=== PATIENT | male | born 1940 | race Two or more races ===

== ENCOUNTER 2020-06-29 18:45 | Inpatient (IN) | payer MEDICARE, OTHER ==
[~2020-06-29] VITALS: Ht 172.7 cm; Wt 102.5 kg
--- NOTE | 2020-06-29 18:49 | NUR ---
Dr Beebe spoke to Dr Gilliam, sfdc consultant.
[2020-06-29] MEDS ORDERED: NOREPINEPHRINE BITARTRATE 8 MG in IV NORMAL SALINE 242 ML IV PRN ×4 (19:15)
[2020-06-29] MEDS ORDERED: MEROPENEM 1,000 MG in IV NORMAL SALINE 100 ML IV ONE (19:15)
--- NOTE | 2020-06-29 19:15 | NUR ---
PATIENT BIB RA FROM [facility]. PER REPORT PATIENT WAS RECIEVING DIALYSIS WHEN SBP DOWN TO 50'S. DIALYSIS NURSE REPLACED FLUID THAT WAS REMOVED BUT REMAIN HYPOTENTSIVE. PATIENT UPON ARRIVAL ONLY RESPONDING TO PAINFUL STIMULI. HAS TRACH WITH SHILEY 7.0 XLT WITH VENT SETTING OF AC 20, TIDAL VOLUME OF 550, PEEP OF 5 AND FIO2 OF 40%. PATIENT WITH PERMACATH ON RIGHT CHEST WAS, DOUBLE LUMEN MID LINE ON LEFT UPPER ARM, G TUBE ON ABDOMINAL AREA.
[2020-06-29] MEDS ORDERED: DOXA1TAB2 GT (19:52)
[2020-06-29] MEDS ORDERED: ASPI-1094 GT (19:52)
[2020-06-29] MEDS ORDERED: DUTA0.5C GT (19:52)
[2020-06-29] MEDS ORDERED: DOXA1TAB GT (19:52)
[2020-06-29] MEDS ORDERED: ALBU18HF2 IH (19:52)
[2020-06-29] MEDS ORDERED: ATOR20TA GT (19:52)
[2020-06-29 20:26] LABS: CARBON DIOXIDE 23 mmol/L (21-32); CHLORIDE 103 mmol/L (98-107); CREATININE 2.2 mg/dL (0.6-1.3); GLUCOSE 206 mg/dL (74-106); UREA NITROGEN, BLOOD 54 mg/dL (7-18)
[2020-06-29] MEDS ORDERED: VANCOMYCIN IV 200 ML ONE (20:26)
[2020-06-29] MEDS ORDERED: MEROPENEM 1GM/NS 100ML IVPB **ER PYXIS ONLY IV ONE (20:26)
[2020-06-29 20:27] LABS: BASOPHILS # (AUTO) 0.1 K/uL (0.0-8.0); BASOPHILS % (AUTO) 0.2 % (0.0-2.0); EOSINOPHILS % (AUTO) 0.2 % (0.0-7.0); HEMATOCRIT 26.6 % (36.7-47.1); LYMPHOCYTES # (AUTO) 0.5 K/uL (20.0-40.0); MEAN CORPUSCULAR HEMOGLOBIN 28.8 uug (23.8-33.4); MEAN CORPUSCULAR HGB CONC 30 g/dL (32.5-36.3); MEAN CORPUSCULAR VOLUME 96.3 fL (73.0-96.2); MONOCYTES # (AUTO) 1.4 K/uL (2.0-10.0); MONOCYTES % (AUTO) 5.4 % (0.0-11.0); NEUTROPHILS # (AUTO) 24.6 K/uL (1.8-8.9); NEUTROPHILS % (AUTO) 92.2 % (38.5-71.5); PLATELET COUNT (AUTO) 397 K/uL (152-348); RED BLOOD CELL COUNT(AUTO) 2.76 MIL/uL (4.06-5.63); WHITE BLOOD COUNT (AUTO) 26.6 K/uL (3.6-10.2)
[2020-06-29 20:28] LABS: POTASSIUM 2.7 mmol/L (3.5-5.1)
[2020-06-29 20:32] LABS: ALANINE AMINOTRANSFERASE 23 U/L (16-63); ALKALINE PHOSPHATASE 217 U/L (50-136); ASPARTATE AMINOTRANSFERASE 23 U/L (15-37); BILIRUBIN,DIRECT 0.2 mg/dL (0.0-0.2); BILIRUBIN,TOTAL 0.3 mg/dL (0.2-1.0); CREATINE KINASE, TOTAL 34 U/L (39-308); LACTATE DEHYDROGENASE 182 U/L (85-227); TOTAL PROTEIN, SERUM 6.4 g/dL (6.4-8.2)
[2020-06-29] MEDS ORDERED: VANCOMYCIN IV 1,000 MG in IV DEXTROSE 5% 250 ML IV ONE (21:00)
[2020-06-29] MEDS ORDERED: ONDANSETRON 4 MG/2 ML VIAL IV PRN (21:30)
[2020-06-29] MEDS ORDERED: HYDROCODONE/APAP 5-325MG TABLET PO PRN (21:30)
[2020-06-29] MEDS ORDERED: MAGNESIUM HYDROXIDE 30 ML LIQUID UDC PO PRN (21:30)
[2020-06-29 21:31] LABS: FERRITIN 2011 ng/mL (26-388)
[2020-06-29] MEDS: VANCOMYCIN IV 1,000 MG in IV DEXTROSE 5% 250 ML IV ONE ×2 (21:57→21:58)
[2020-06-29] MEDS: MEROPENEM 1 G in IV NORMAL SALINE 100 ML IV SCH (22:00)
[2020-06-29] MEDS ORDERED: SWABABLE VALVE TRANSFER SET EA MC ONE (22:38)
[2020-06-29] MEDS ORDERED: IV NORMAL SALINE 250 ML IV ONE (22:38)
[2020-06-29] MEDS ORDERED: IOHEXOL 350 100 ML INFUS..BTL ONE (22:38)
--- NOTE | 2020-06-29 23:15 | NUR ---
Patient down to ct scan with critical monitoring.
--- NOTE | 2020-06-29 23:26 | NUR ---
Patient back from cta with no distress noted.
[2020-06-30] MEDS: MEROPENEM 1 G in IV NORMAL SALINE 100 ML IV SCH ×3 (00:40→20:18)
[2020-06-30] MEDS: IV LACTATED RINGERS SOLUTION 1,000 ML IV SCH ×3 (01:46→19:34)
--- NOTE | 2020-06-30 07:10 | NUR ---
Recieved pt from [facility]. Pt in [facility] on vent with settings of AC 20, VT 550, PEEP 5, and fi02 40%. Pt on levophed at 0.1mcg/kg/hr. Pending admission admission to hospital.
[2020-06-30 08:04] LABS: CARBON DIOXIDE 21 mmol/L (21-32); CHLORIDE 101 mmol/L (98-107); CHOLESTEROL 56 mg/dL (<200); CREATININE 2.8 mg/dL (0.6-1.3); GLUCOSE 245 mg/dL (74-106); HDL CHOLESTEROL 19 mg/dL (40-60); MAGNESIUM 2.6 mg/dL (1.8-2.4); PHOSPHOROUS 4.7 mg/dL (2.5-4.9); POTASSIUM 2.9 mmol/L (3.5-5.1); TRIGLYCERIDES 81 MG/DL (30-150); UREA NITROGEN, BLOOD 68 mg/dL (7-18)
[2020-06-30 08:15] LABS: BASOPHILS # (AUTO) 0.1 K/uL (0.0-8.0); BASOPHILS % (AUTO) 0.4 % (0.0-2.0); EOSINOPHILS % (AUTO) 0.1 % (0.0-7.0); HEMATOCRIT 27.5 % (36.7-47.1); HEMOGLOBIN 8.2 g/dL (12.5-16.3); LYMPHOCYTES # (AUTO) 0.4 K/uL (20.0-40.0); LYMPHOCYTES % (AUTO) 1.5 % (20.5-51.5); MEAN CORPUSCULAR HEMOGLOBIN 29.3 uug (23.8-33.4); MEAN CORPUSCULAR HGB CONC 30 g/dL (32.5-36.3); MEAN CORPUSCULAR VOLUME 98.6 fL (73.0-96.2); MONOCYTES # (AUTO) 1.5 K/uL (2.0-10.0); MONOCYTES % (AUTO) 5.3 % (0.0-11.0); NEUTROPHILS # (AUTO) 26.1 K/uL (1.8-8.9); NEUTROPHILS % (AUTO) 92.7 % (38.5-71.5); PLATELET COUNT (AUTO) 424 K/uL (152-348); RED BLOOD CELL COUNT(AUTO) 2.79 MIL/uL (4.06-5.63); WHITE BLOOD COUNT (AUTO) 28.2 K/uL (3.6-10.2)
--- NOTE | 2020-06-30 08:37 | NUR ---
Dr. Souza at [facility], came to evaluate patient. Aware of K of 2.9
[2020-06-30] MEDS ORDERED: ASPIRIN 81 MG TAB.CHEW ONE (08:48)
[2020-06-30] MEDS ORDERED: DOXAZOSIN 1 MG TABLET ONE (08:48)
[2020-06-30] MEDS: ASPIRIN 81 MG TAB.CHEW GT SCH (08:53)
[2020-06-30] MEDS: DOXAZOSIN 1 MG TABLET GT SCH (08:53)
[2020-06-30] MEDS: DUTASTERIDE 0.5 MG CAPSULE PO SCH (08:55)
[2020-06-30] MEDS ORDERED: DOXAZOSIN 1 MG TABLET GT SCH (09:00)
[2020-06-30] MEDS ORDERED: ALBUTEROL SULFATE 8 GM HFA.AER.AD IH PRN (09:00)
[2020-06-30] MEDS ORDERED: VANCOMYCIN IV 1,000 MG in IV DEXTROSE 5% 250 ML IV ONE (09:00)
[2020-06-30] MEDS ORDERED: POTASSIUM PHOSPHATE MM 15 MMOL in IV NORMAL SALINE 250 ML IV ONE (11:00)
[2020-06-30] MEDS: POTASSIUM PHOSPHATE MM 7.5 MMOL in IV NORMAL SALINE 97.5 ML IV SCH ×2 (13:13→15:58)
--- NOTE | 2020-06-30 20:00 | NUR ---
Patient in room 4A with trach vent with setting of AC 20, tidal volume 550, PEEP 5 and FIO@ 40% satting at 100%. Left upper double midline patent with dressing intact, benjie cath on right chest wall. Levophed infusing at 0.1mcg/kg/min. No distress noted.
[2020-06-30] MEDS: ATORVASTATIN 20 MG TABLET GT SCH (20:17)
--- NOTE | 2020-07-01 | NUR ---
Continue crtical care monitoring.
[2020-07-01] MEDS: IV LACTATED RINGERS SOLUTION 1,000 ML IV SCH ×2 (05:07→14:40)
[2020-07-01 07:22] LABS: BASOPHILS # (AUTO) 0.1 K/uL (0.0-8.0); BASOPHILS % (AUTO) 0.3 % (0.0-2.0); EOSINOPHILS # (AUTO) 0.1 K/uL (0.0-0.7); EOSINOPHILS % (AUTO) 0.4 % (0.0-7.0); HEMATOCRIT 26.8 % (36.7-47.1); HEMOGLOBIN 7.9 g/dL (12.5-16.3); LYMPHOCYTES # (AUTO) 0.4 K/uL (20.0-40.0); LYMPHOCYTES % (AUTO) 1.5 % (20.5-51.5); MEAN CORPUSCULAR HGB CONC 30 g/dL (32.5-36.3); MEAN CORPUSCULAR VOLUME 98.1 fL (73.0-96.2); MONOCYTES # (AUTO) 1.4 K/uL (2.0-10.0); MONOCYTES % (AUTO) 5.1 % (0.0-11.0); NEUTROPHILS # (AUTO) 24.3 K/uL (1.8-8.9); NEUTROPHILS % (AUTO) 92.7 % (38.5-71.5); PLATELET COUNT (AUTO) 385 K/uL (152-348); RED BLOOD CELL COUNT(AUTO) 2.73 MIL/uL (4.06-5.63); WHITE BLOOD COUNT (AUTO) 26.3 K/uL (3.6-10.2)
[2020-07-01 07:41] LABS: CARBON DIOXIDE 17 mmol/L (21-32); CHLORIDE 100 mmol/L (98-107); CREATININE 3.2 mg/dL (0.6-1.3); GLUCOSE 211 mg/dL (74-106); MAGNESIUM 2.2 mg/dL (1.8-2.4); PHOSPHOROUS 6.6 mg/dL (2.5-4.9); UREA NITROGEN, BLOOD 76 mg/dL (7-18); VANCOMYCIN,RANDOM 20.7 ug/mL (18.0-26.0)
[2020-07-01] MEDS: DUTASTERIDE 0.5 MG CAPSULE PO SCH ×2 (09:00→10:10)
[2020-07-01] MEDS: ASPIRIN 81 MG TAB.CHEW GT SCH ×2 (09:00→10:09)
[2020-07-01] MEDS: DOXAZOSIN 1 MG TABLET GT SCH (09:00)
[2020-07-01 09:22] LABS: POTASSIUM 2.5 mmol/L (3.5-5.1)
--- NOTE | 2020-07-01 09:50 | NUR ---
Also Dr. Zimmerman was informed that pt's Potassium=2.5. He stated he would put in orders.
--- NOTE | 2020-07-01 10:10 | NUR ---
Pt's BP dropped when levophed ran out and bottle was changed (off for about 8 minutes), then went back up when it was restarted.
[2020-07-01] MEDS ORDERED: DOXAZOSIN 1 MG TABLET ONE (10:11)
[2020-07-01] MEDS ORDERED: ASPIRIN 81 MG TAB.CHEW ONE (10:11)
[2020-07-01] MEDS: MEROPENEM 1 G in IV NORMAL SALINE 100 ML IV SCH ×2 (10:45→20:40)
[2020-07-01] MEDS ORDERED: MEROPENEM 1GM/NS 100ML IVPB **ER PYXIS ONLY IV ONE ×2 (10:49→20:37)
--- NOTE | 2020-07-01 11:00 | NUR ---
Cleaned and turned pt.
[2020-07-01] MEDS ORDERED: POTASSIUM CHLORIDE 50 ML ONE ×2 (11:52→13:31)
[2020-07-01] MEDS: POTASSIUM CHLORIDE 50 ML IV SCH ×2 (12:05→13:20)
--- NOTE | 2020-07-01 12:25 | NUR ---
Pt's BP and SPO2 dropped. INCREASED LEVOPHED to 0.2mcg/kg/min to increase MAP >60. Pt suctioned.
[2020-07-01] MEDS ORDERED: PIPERACILLIN/TAZOBACTAM/D5W 50 ML IV ONE (14:51)
[2020-07-01] MEDS ORDERED: VANCOMYCIN IV 200 ML ONE (14:51)
[2020-07-01] MEDS: Z GUARD REMEDY PASTE 57 GM TUBE TOP PRN (17:51)
[2020-07-01] MEDS: ATORVASTATIN 20 MG TABLET GT SCH (20:40)
--- NOTE | 2020-07-01 20:55 | NUR ---
Dialysis nurse into do dialysis.
--- NOTE | 2020-07-01 23:10 | NUR ---
Dialysis nurse removed 1600ml fluid. Patient with no distress noted.
[2020-07-02] MEDS: IV LACTATED RINGERS SOLUTION 1,000 ML IV SCH ×2 (00:23→09:38)
--- NOTE | 2020-07-02 07:03 | NUR ---
PANDEMIC COVID 19 charting. Multiple ER/"out of ratio pt", observed in ER.
[2020-07-02 07:41] LABS: BASOPHILS # (AUTO) 0.1 K/uL (0.0-8.0); BASOPHILS % (AUTO) 0.3 % (0.0-2.0); EOSINOPHILS # (AUTO) 0.2 K/uL (0.0-0.7); EOSINOPHILS % (AUTO) 0.7 % (0.0-7.0); HEMATOCRIT 27.1 % (36.7-47.1); HEMOGLOBIN 7.8 g/dL (12.5-16.3); LYMPHOCYTES # (AUTO) 0.4 K/uL (20.0-40.0); LYMPHOCYTES % (AUTO) 1.7 % (20.5-51.5); MEAN CORPUSCULAR HEMOGLOBIN 29.1 uug (23.8-33.4); MEAN CORPUSCULAR HGB CONC 29 g/dL (32.5-36.3); MEAN CORPUSCULAR VOLUME 100.6 fL (73.0-96.2); MONOCYTES # (AUTO) 1.1 K/uL (2.0-10.0); MONOCYTES % (AUTO) 4.1 % (0.0-11.0); NEUTROPHILS # (AUTO) 24.4 K/uL (1.8-8.9); NEUTROPHILS % (AUTO) 93.2 % (38.5-71.5); PLATELET COUNT (AUTO) 404 K/uL (152-348); RED BLOOD CELL COUNT(AUTO) 2.69 MIL/uL (4.06-5.63); WHITE BLOOD COUNT (AUTO) 26.1 K/uL (3.6-10.2)
--- NOTE | 2020-07-02 07:50 | NUR ---
Levophed decreased to 0.1mcg/kg/min. BP is 142/76.
[2020-07-02 07:56] LABS: CARBON DIOXIDE 19 mmol/L (21-32); CHLORIDE 99 mmol/L (98-107); CREATININE 2.8 mg/dL (0.6-1.3); GLUCOSE 210 mg/dL (74-106); MAGNESIUM 2.2 mg/dL (1.8-2.4); UREA NITROGEN, BLOOD 61 mg/dL (7-18)
[2020-07-02 07:57] LABS: POTASSIUM 2.7 mmol/L (3.5-5.1)
[2020-07-02 08:08] LABS: ABG BASE EXCESS -9.4 mmol/L; ABG HCO3 17.1 mmol/L; ABG PCO2 39.5 mmHg (35.0-45.0); ABG PH 7.253 (7.350-7.450); ABG PO2 95.1 mmHg (75.0-100.0); ABG SITE RIGHT RADIAL; ABG TOTAL HEMOGLOBIN 8.3 G/dL (13.5-18.0); COHb 1.9 % (0.5-1.5); MetHb 0.3 % (0.0-1.5); VENT MODE VENT - A/C; VT, ABG 550 mL
[2020-07-02] MEDS ORDERED: POTASSIUM CHLORIDE 20 MEQ POWDER PACKET GT ONE (08:15)
[2020-07-02] MEDS: DOXAZOSIN 1 MG TABLET GT SCH (08:26)
[2020-07-02] MEDS ORDERED: POTASSIUM CHLORIDE 20 MEQ POWDER PACKET ONE (08:30)
[2020-07-02] MEDS ORDERED: MEROPENEM 1 G VIAL IV ONE (08:41)
[2020-07-02] MEDS: MEROPENEM 1 G in IV NORMAL SALINE 100 ML IV SCH ×2 (08:44→20:35)
--- NOTE | 2020-07-02 09:47 | NUR ---
Reposition pt,tolorated well. continue w/ closed monitoring.
[2020-07-02] MEDS ORDERED: IV LACTATED RINGERS SOLUTION 1,000 ML IV PRN (12:17)
--- NOTE | 2020-07-02 12:22 | NUR ---
Turn and repostion the pt, BM x2. KARLI noted.
--- NOTE | 2020-07-02 14:33 | NUR ---
Reposition for comfort, NAD noted.
--- NOTE | 2020-07-02 15:00 | NUR ---
Dr Gilliam in to see pt. HD order place by Dr Gilliam.
--- NOTE | 2020-07-02 16:22 | NUR ---
Dr Souza at the bedside, notify of Pt's sking condition/wound.
--- NOTE | 2020-07-02 16:35 | NUR ---
Dr Becker, visiting pt.
--- NOTE | 2020-07-02 20:00 | NUR ---
Patient room 4A responding to painful stimuli. Trach site clean and intact with vent setting of A/C 20, Tidal Volume 550, PEEP 5, FIO2 40%. Permacath on right chest wall. Edema on bilateral upper extremity with skin tears. Changed dressing on coccyx are. Reposition patient. Continue crtitical care monitoring. On Levophed drip running at 0.1mcg/kg/min. Double lumen piccline on left upper arm patent.
[2020-07-02] MEDS: ATORVASTATIN 20 MG TABLET GT SCH (20:15)
[2020-07-02] MEDS ORDERED: MEROPENEM 1GM/NS 100ML IVPB **ER PYXIS ONLY IV ONE (20:29)
--- NOTE | 2020-07-03 06:00 | NUR ---
Changed dressing on coccyx area.
[2020-07-03 06:49] LABS: BASOPHILS # (AUTO) 0.1 K/uL (0.0-8.0); BASOPHILS % (AUTO) 0.4 % (0.0-2.0); EOSINOPHILS # (AUTO) 0.1 K/uL (0.0-0.7); EOSINOPHILS % (AUTO) 0.5 % (0.0-7.0); HEMATOCRIT 26.1 % (36.7-47.1); HEMOGLOBIN 7.6 g/dL (12.5-16.3); LYMPHOCYTES # (AUTO) 0.5 K/uL (20.0-40.0); LYMPHOCYTES % (AUTO) 1.8 % (20.5-51.5); MEAN CORPUSCULAR HEMOGLOBIN 28.8 uug (23.8-33.4); MEAN CORPUSCULAR HGB CONC 29 g/dL (32.5-36.3); MONOCYTES # (AUTO) 1.3 K/uL (2.0-10.0); MONOCYTES % (AUTO) 4.6 % (0.0-11.0); NEUTROPHILS # (AUTO) 26.5 K/uL (1.8-8.9); NEUTROPHILS % (AUTO) 92.7 % (38.5-71.5); PLATELET COUNT (AUTO) 398 K/uL (152-348); RED BLOOD CELL COUNT(AUTO) 2.66 MIL/uL (4.06-5.63); WHITE BLOOD COUNT (AUTO) 28.5 K/uL (3.6-10.2)
[2020-07-03 07:06] LABS: CARBON DIOXIDE 19 mmol/L (21-32); CHLORIDE 101 mmol/L (98-107); CREATININE 3.3 mg/dL (0.6-1.3); GLUCOSE 179 mg/dL (74-106); PHOSPHOROUS 6.3 mg/dL (2.5-4.9); POTASSIUM 3.1 mmol/L (3.5-5.1); UREA NITROGEN, BLOOD 65 mg/dL (7-18); VANCOMYCIN,RANDOM 16.2 ug/mL (18.0-26.0)
--- NOTE | 2020-07-03 07:07 | NUR ---
DR Zimmerman into eval patient. Stopped levophed as requested by Dr Rees.
--- NOTE | 2020-07-03 07:15 | NUR ---
BP = 84/45, LEVOPHERD Restarted.
[2020-07-03] MEDS ORDERED: VANCOMYCIN IV 1,000 MG in IV DEXTROSE 5% 250 ML IV ONE (09:00)
[2020-07-03] MEDS: DOXAZOSIN 1 MG TABLET GT SCH (09:00)
[2020-07-03] MEDS ORDERED: ALBUTEROL SULFATE 2.5 MG/3 ML NEBU NEB PRN (09:15)
[2020-07-03] MEDS ORDERED: ASPIRIN 81 MG TAB.CHEW ONE (09:25)
[2020-07-03] MEDS: ASPIRIN 81 MG TAB.CHEW GT SCH (09:34)
[2020-07-03] MEDS: DUTASTERIDE 0.5 MG CAPSULE PO SCH (09:34)
--- NOTE | 2020-07-03 09:40 | NUR ---
Change LEVOPHED bag/bottle.
[2020-07-03] MEDS ORDERED: MEROPENEM 500MG/NS 50ML PB ***ER PYXIS ONLY IV ONE (09:44)
[2020-07-03] MEDS: MEROPENEM 500 MG in IV NORMAL SALINE 50 ML IV SCH ×2 (09:45→20:35)
--- NOTE | 2020-07-03 10:45 | NUR ---
Wound care nurse packed scral wound and bandaged. Then cleaned and turned pt., replaced linens.
--- NOTE | 2020-07-03 10:54 | NUR ---
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 SCARRING NOTED TO BILATERAL HEELS AND ANKLES. RECOMMEND SURGICAL AND DPM CONSULTS. DR GRIGGS AND DR WATERMAN NOTIFIED OF CONSULT REQUESTS. RECOMMENDATIONS MADE FOR SKIN PROTECTION AND WOUND CARE. DISCUSSED WITH NURSING STAFF AND Heather HILL, SURGICAL P.A. FIRST STEP LOW AIRLOSS MATTRESS TO BE PLACED. MD IN AGREEMENT WITH PLAN OF CARE.
--- NOTE | 2020-07-03 11:05 | NUR ---
Suctioned pt's trach.
--- NOTE | 2020-07-03 11:20 | NUR ---
Suctioned trach tube again.
[2020-07-03] MEDS ORDERED: POTASSIUM CHLORIDE 50 ML ONE ×2 (13:58→15:30)
[2020-07-03] MEDS: POTASSIUM CHLORIDE 50 ML IV SCH ×2 (14:00→15:15)
[2020-07-03] MEDS: CALCIUM ACETATE 667 MG CAPSULE PO SCH ×2 (15:40→20:34)
[2020-07-03] MEDS: CLOTRIMAZOLE 1% CREAM 30 GM TUBE TOP SCH (17:00)
[2020-07-03] MEDS ORDERED: MEROPENEM 1GM/NS 100ML IVPB **ER PYXIS ONLY IV ONE (19:23)
[2020-07-03] MEDS: SODIUM HYPOCHLORITE 0.125% (QUARTER STRENGTH) 473 ML BOTTLE TP SCH (20:34)
[2020-07-03] MEDS: ATORVASTATIN 20 MG TABLET GT SCH (20:35)
--- NOTE | 2020-07-04 06:00 | NUR ---
Changed dressing on sacral area, bilateral lower extremity and bilateral arms as per wound care order. Changed dressing on g tube site.
[2020-07-04] MEDS: SODIUM HYPOCHLORITE 0.125% (QUARTER STRENGTH) 473 ML BOTTLE TP SCH (06:30)
[2020-07-04] MEDS: CLOTRIMAZOLE 1% CREAM 30 GM TUBE TOP SCH (06:30)
--- NOTE | 2020-07-04 08:30 | NUR ---
INCREASED LEVOPHED to 0.2mcg/kg/min (adjusted at 0820) after Pt's BP began to drop to 85/45. BP kendra to 112/47.
[2020-07-04 08:37] LABS: CARBON DIOXIDE 22 mmol/L (21-32); CHLORIDE 104 mmol/L (98-107); CREATININE 3.9 mg/dL (0.6-1.3); GLUCOSE 158 mg/dL (74-106); MAGNESIUM 1.9 mg/dL (1.8-2.4); PHOSPHOROUS 6.1 mg/dL (2.5-4.9); POTASSIUM 3.5 mmol/L (3.5-5.1); UREA NITROGEN, BLOOD 77 mg/dL (7-18)
[2020-07-04 08:41] LABS: HEMATOCRIT 23.6 % (36.7-47.1)
[2020-07-04] MEDS ORDERED: MIDODRINE HCL 2.5 MG TABLET PO SCH (08:45)
[2020-07-04 08:48] LABS: BASOPHILS # (AUTO) 0.3 K/uL (0.0-8.0); BASOPHILS % (AUTO) 1.1 % (0.0-2.0); EOSINOPHILS # (AUTO) 0.1 K/uL (0.0-0.7); EOSINOPHILS % (AUTO) 0.5 % (0.0-7.0); LYMPHOCYTES # (AUTO) 0.8 K/uL (20.0-40.0); MEAN CORPUSCULAR HEMOGLOBIN 29.6 uug (23.8-33.4); MEAN CORPUSCULAR HGB CONC 31 g/dL (32.5-36.3); MEAN CORPUSCULAR VOLUME 96.6 fL (73.0-96.2); MONOCYTES % (AUTO) 4.1 % (0.0-11.0); NEUTROPHILS # (AUTO) 23.3 K/uL (1.8-8.9); NEUTROPHILS % (AUTO) 91.3 % (38.5-71.5); PLATELET COUNT (AUTO) 378 K/uL (152-348); WHITE BLOOD COUNT (AUTO) 25.5 K/uL (3.6-10.2)
[2020-07-04 08:54] LABS: ABG BASE EXCESS -11.5 mmol/L; ABG HCO3 14.9 mmol/L; ABG PCO2 35.8 mmHg (35.0-45.0); ABG PH 7.238 (7.350-7.450); ABG PO2 87.8 mmHg (75.0-100.0); ABG SITE RIGHT RADIAL; ABG TOTAL HEMOGLOBIN 8.4 G/dL (13.5-18.0); MetHb 0.3 % (0.0-1.5); O2Hb 93.6 % (94.0-97.0); VENT MODE VENT - A/C; VT, ABG 550 mL
[2020-07-04] MEDS ORDERED: MEROPENEM 500MG/NS 50ML PB ***ER PYXIS ONLY IV ONE ×2 (08:59→21:15)
[2020-07-04] MEDS ORDERED: ASPIRIN 81 MG TAB.CHEW ONE (08:59)
[2020-07-04] MEDS: DOXAZOSIN 1 MG TABLET GT SCH (09:00)
[2020-07-04] MEDS: CALCIUM ACETATE 667 MG CAPSULE PO SCH ×2 (09:20→13:30)
[2020-07-04] MEDS: ASPIRIN 81 MG TAB.CHEW GT SCH (09:23)
[2020-07-04] MEDS: DUTASTERIDE 0.5 MG CAPSULE PO SCH (09:24)
[2020-07-04] MEDS: MIDODRINE HCL 5 MG TABLET PO SCH ×3 (09:25→22:00)
[2020-07-04] MEDS: MEROPENEM 500 MG in IV NORMAL SALINE 50 ML IV SCH ×2 (09:58→21:43)
--- NOTE | 2020-07-04 10:14 | NUR ---
Received air mattress for hospital bed, transferred pt to that bed and adjusted pressure for ht and wt. Repositioned pt.
[2020-07-04 10:45] LABS: HEMOGLOBIN 7.2 g/dL (12.5-16.3); RED BLOOD CELL COUNT(AUTO) 2.44 MIL/uL (4.06-5.63)
[2020-07-04] MEDS ORDERED: VANCOMYCIN IV 1,000 MG in IV DEXTROSE 5% 250 ML IV SCH (12:00)
[2020-07-04] MEDS ORDERED: VANCOMYCIN IV 500 MG in IV DEXTROSE 5% 100 ML IV PRN (12:30)
--- NOTE | 2020-07-04 13:35 | NUR ---
REDUCED LEVOPHED back to 0.1 mcg/kg/min since SBP in 130's.
--- NOTE | 2020-07-04 13:50 | NUR ---
Dr Souza aware of Critical lab values.
[2020-07-04] MEDS ORDERED: VANCOMYCIN IV 1,000 MG in IV DEXTROSE 5% 250 ML IV ONE (15:00)
--- NOTE | 2020-07-04 15:10 | NUR ---
Told Dr. Dailey that pt had not had a PCR Covid test, stated to order it.
[2020-07-04] MEDS ORDERED: GLUCERNA 1.2 1000ML LIQUID GT PRN (16:30)
--- NOTE | 2020-07-04 16:59 | NUR ---
Suctioned Pt's trach and mouth.
--- NOTE | 2020-07-04 17:55 | NUR ---
Repositioned pt. Elevated arms.
--- NOTE | 2020-07-04 18:06 | NUR ---
PICC nurse suggested to leave pt's line alone unless there are problems.
--- NOTE | 2020-07-04 19:00 | NUR ---
building insulation installer at bedside.
[2020-07-04] MEDS: ATORVASTATIN 20 MG TABLET GT SCH (21:43)
--- NOTE | 2020-07-04 22:32 | NUR ---
Held Midodrine due to patient's BP WNL.
--- NOTE | 2020-07-05 05:35 | NUR ---
Xray at bedside.
--- NOTE | 2020-07-05 07:09 | NUR ---
Report given to Brea cross.
--- NOTE | 2020-07-05 07:10 | NUR ---
Pradeep PORTER 19 charting in ER. "out Of Ratio"/understaffed/holding ICU pts.
[2020-07-05 08:16] LABS: BASOPHILS # (AUTO) 0.1 K/uL (0.0-8.0); BASOPHILS % (AUTO) 0.3 % (0.0-2.0); EOSINOPHILS # (AUTO) 0.1 K/uL (0.0-0.7); EOSINOPHILS % (AUTO) 0.5 % (0.0-7.0); HEMATOCRIT 25.2 % (36.7-47.1); HEMOGLOBIN 7.8 g/dL (12.5-16.3); LYMPHOCYTES # (AUTO) 0.7 K/uL (20.0-40.0); LYMPHOCYTES % (AUTO) 2.9 % (20.5-51.5); MEAN CORPUSCULAR HEMOGLOBIN 29.3 uug (23.8-33.4); MEAN CORPUSCULAR HGB CONC 31 g/dL (32.5-36.3); MEAN CORPUSCULAR VOLUME 94.6 fL (73.0-96.2); MONOCYTES # (AUTO) 1.2 K/uL (2.0-10.0); MONOCYTES % (AUTO) 5.2 % (0.0-11.0); NEUTROPHILS # (AUTO) 20.8 K/uL (1.8-8.9); NEUTROPHILS % (AUTO) 91.1 % (38.5-71.5); PLATELET COUNT (AUTO) 355 K/uL (152-348); RED BLOOD CELL COUNT(AUTO) 2.67 MIL/uL (4.06-5.63); WHITE BLOOD COUNT (AUTO) 22.9 K/uL (3.6-10.2)
[2020-07-05] MEDS: CALCIUM ACETATE 667 MG CAPSULE PO SCH ×4 (08:40→17:43)
[2020-07-05] MEDS: CLOTRIMAZOLE 1% CREAM 30 GM TUBE TOP SCH ×3 (08:47→17:16)
[2020-07-05] MEDS: MIDODRINE HCL 5 MG TABLET PO SCH ×3 (08:48→22:25)
[2020-07-05] MEDS: SODIUM HYPOCHLORITE 0.125% (QUARTER STRENGTH) 473 ML BOTTLE TP SCH ×3 (08:48→17:17)
--- NOTE | 2020-07-05 08:49 | NUR ---
Multiple meds on Pt's emar was not signed/given. No report from previous nurse given to me regarding it.
[2020-07-05] MEDS: DOXAZOSIN 1 MG TABLET GT SCH (08:53)
[2020-07-05] MEDS ORDERED: MEROPENEM 500 MG VIAL IV ONE (09:01)
[2020-07-05] MEDS ORDERED: ASPIRIN 81 MG TAB.CHEW ONE (09:01)
[2020-07-05] MEDS: MEROPENEM 500 MG in IV NORMAL SALINE 50 ML IV SCH ×2 (09:11→21:00)
[2020-07-05] MEDS: DUTASTERIDE 0.5 MG CAPSULE PO SCH (09:12)
[2020-07-05] MEDS: ASPIRIN 81 MG TAB.CHEW GT SCH (09:13)
[2020-07-05 09:15] LABS: CARBON DIOXIDE 23 mmol/L (21-32); CHLORIDE 102 mmol/L (98-107); GLUCOSE 134 mg/dL (74-106); MAGNESIUM 1.8 mg/dL (1.8-2.4); PHOSPHOROUS 4.6 mg/dL (2.5-4.9); POTASSIUM 3.1 mmol/L (3.5-5.1); UREA NITROGEN, BLOOD 53 mg/dL (7-18)
--- NOTE | 2020-07-05 09:17 | NUR ---
Reposition pt, wound care given per wound care orders. Pt has serosanguinouns drainge from all open skin areas.
[2020-07-05] MEDS ORDERED: POTASSIUM CHLORIDE 20 MEQ POWDER PACKET GT ONE (10:15)
[2020-07-05 10:26] LABS: ABG BASE EXCESS -3.2 mmol/L; ABG PCO2 33.9 mmHg (35.0-45.0); ABG SITE RIGHT RADIAL; ABG TOTAL HEMOGLOBIN 7.8 G/dL (13.5-18.0); COHb 2.1 % (0.5-1.5); MetHb 0.3 % (0.0-1.5); O2Hb 93.8 % (94.0-97.0); VENT MODE VENT - A/C; VT, ABG 550 mL
[2020-07-05] MEDS ORDERED: POTASSIUM CHLORIDE 20 MEQ POWDER PACKET ONE (10:36)
--- NOTE | 2020-07-05 11:10 | NUR ---
Dr Gilliam at the bedside.
--- NOTE | 2020-07-05 11:25 | NUR ---
Dr Dailey and Dr العلي visited pt.
--- NOTE | 2020-07-05 12:05 | NUR ---
Reposition and comfort care given.
[2020-07-05 13:53] LABS: BAND % (MANUAL) 21 % (0-10); LYMPHOCYTES % (MANUAL) 6 % (20-40); MONOCYTES % (MANUAL) 4 % (2-10); NEUTROPHILS % (MANUAL) 69 % (42-75)
[2020-07-05] MEDS ORDERED: AMLODIPINE 5 MG TABLET ONE (14:40)
--- NOTE | 2020-07-05 16:16 | NUR ---
Reposition pt, arms elevated. dressing change on BUE and BLE.
[2020-07-05] MEDS: ATORVASTATIN 20 MG TABLET GT SCH (21:00)
[2020-07-05] MEDS ORDERED: MEROPENEM 500MG/NS 50ML PB ***ER PYXIS ONLY IV ONE (22:17)
--- NOTE | 2020-07-06 03:00 | NUR ---
Stopped Levophed drip.
--- NOTE | 2020-07-06 05:15 | NUR ---
Started Glucerna G-tube feed, but noticed that the Gtube was pulled out, attempted to put Gtube back in but stoma has closed. Last known time Gtube was in place 2229.
[2020-07-06] MEDS: MIDODRINE HCL 5 MG TABLET PO SCH ×3 (06:00→21:15)
--- NOTE | 2020-07-06 06:03 | NUR ---
Held Midodrine due to G-tube dislodged. Blood pressure 105/47.
[2020-07-06 06:46] LABS: CARBON DIOXIDE 22 mmol/L (21-32); CHLORIDE 104 mmol/L (98-107); CREATININE 3.6 mg/dL (0.6-1.3); GLUCOSE 113 mg/dL (74-106); MAGNESIUM 1.8 mg/dL (1.8-2.4); PHOSPHOROUS 5.4 mg/dL (2.5-4.9); POTASSIUM 3.2 mmol/L (3.5-5.1); UREA NITROGEN, BLOOD 66 mg/dL (7-18); VANCOMYCIN,RANDOM 19.5 ug/mL (18.0-26.0)
--- NOTE | 2020-07-06 06:59 | NUR ---
Report given to Erica RIVAS dayshift.
[2020-07-06] MEDS: CALCIUM ACETATE 667 MG CAPSULE PO SCH ×3 (08:00→18:00)
--- NOTE | 2020-07-06 08:35 | NUR ---
perineal/comfort measure provided . dressing changed, copius amount of loose light brown stool noticed. will notify the md.
[2020-07-06 08:39] LABS: BASOPHILS % (AUTO) 0.1 % (0.0-2.0); EOSINOPHILS # (AUTO) 0.2 K/uL (0.0-0.7); EOSINOPHILS % (AUTO) 0.9 % (0.0-7.0); HEMATOCRIT 22.9 % (36.7-47.1); LYMPHOCYTES # (AUTO) 0.9 K/uL (20.0-40.0); LYMPHOCYTES % (AUTO) 4.5 % (20.5-51.5); MEAN CORPUSCULAR HEMOGLOBIN 29.5 uug (23.8-33.4); MEAN CORPUSCULAR HGB CONC 30 g/dL (32.5-36.3); MEAN CORPUSCULAR VOLUME 97.1 fL (73.0-96.2); MONOCYTES # (AUTO) 1.6 K/uL (2.0-10.0); MONOCYTES % (AUTO) 7.6 % (0.0-11.0); NEUTROPHILS # (AUTO) 17.8 K/uL (1.8-8.9); NEUTROPHILS % (AUTO) 86.9 % (38.5-71.5); PLATELET COUNT (AUTO) 294 K/uL (152-348); WHITE BLOOD COUNT (AUTO) 20.6 K/uL (3.6-10.2)
[2020-07-06 08:40] LABS: RED BLOOD CELL COUNT(AUTO) 2.36 MIL/uL (4.06-5.63)
--- NOTE | 2020-07-06 08:45 | NUR ---
talked to Dr. العلي over the phone. Dr. العلي requested that er md evaluate the g-tube. if unable to place it back, call for GI consult.
--- NOTE | 2020-07-06 08:56 | NUR ---
CALLED DR. JOYA OFFICE FOR PEG REPLACEMENT. DR. MARGRET ALFORD WATERPROOFER HELPER, LEFT A MESSAGE.
[2020-07-06] MEDS: MEROPENEM 500 MG in IV NORMAL SALINE 50 ML IV SCH ×2 (09:00→20:15)
[2020-07-06] MEDS: CLOTRIMAZOLE 1% CREAM 30 GM TUBE TOP SCH ×2 (09:00→17:05)
[2020-07-06] MEDS: DUTASTERIDE 0.5 MG CAPSULE PO SCH (09:00)
[2020-07-06] MEDS: SODIUM HYPOCHLORITE 0.125% (QUARTER STRENGTH) 473 ML BOTTLE TP SCH ×2 (09:00→17:05)
[2020-07-06] MEDS: ASPIRIN 81 MG TAB.CHEW GT SCH (09:00)
--- NOTE | 2020-07-06 09:00 | NUR ---
UNABLE TO GIVE THE 0900 AM PILLS DUE TO THE FACT THAT PEG IS OUT.
--- NOTE | 2020-07-06 09:15 | NUR ---
DR. JOYA CALLED AND SAID THE PREPARE THE CONSENT FOR EGD WITH PEG PLACEMENT. DR. JOYA SAID THAT IF THE PT SHOULD BE PLACED BACK ON LEVOPHED, SURGERY WILL BE HELD OFF UNTIL PT CAN BE OFF THE LEVOPHED.
--- NOTE | 2020-07-06 10:00 | NUR ---
DR. ORELLANA AT BEDSIDE, AWARE THAT THE PT IS OFF THE LEVOPHED AT THIS TIME. PB AT THIS TIME IS 95/45, DR. ROMERO OK WITH IT.
[2020-07-06] MEDS ORDERED: MEROPENEM 500MG/NS 50ML PB ***ER PYXIS ONLY IV ONE (10:06)
--- NOTE | 2020-07-06 11:00 | NUR ---
DR. PINEDA AT BEDSIDE.
--- NOTE | 2020-07-06 11:54 | NUR ---
LEFT A MESSAGEW FOR DR. JOYA PHONE REGARDING THE PT BEING OFF THE LEVOPHED.
--- NOTE | 2020-07-06 12:10 | NUR ---
RECTAL TUBE PLACED PER DR. LEAL ORDER.
--- NOTE | 2020-07-06 12:24 | NUR ---
called pt daughter, at [phone] and left a message regarding the consent on the egd/peg placement.
--- NOTE | 2020-07-06 12:25 | NUR ---
unable to give g-tube meds.
--- NOTE | 2020-07-06 13:10 | NUR ---
DR. LEAL AT BEDSIDE. DR. LEAL ORDERED STOOL OCCULT BLOOD AND ONE UNIT OF BLOOD TRANSFUSION. STOOL OC SENT TO LAB. CONSENT FOR BLOOD TRANSFUSION PREPARED. Addendum: 07/06/20 at 1444 by GEGE CALLED PT DAUGHTER AGAIN FOR TO NOTIFY HER ABOUT BLOOD TRANSFUSION, NO RESPONSE YET.
--- NOTE | 2020-07-06 14:10 | NUR ---
REGIONAL SALES CONSULTANT AT BEDSIDE.
--- NOTE | 2020-07-06 14:40 | NUR ---
DR. YESSENIA BIRMINGHAM AT BEDSIDE
[2020-07-06 14:42] LABS: *OCCULT BLOOD STOOL POSITIVE (NEGATIVE)
--- NOTE | 2020-07-06 14:48 | NUR ---
UNABLE TO GIVE G-TUBE MEDS
--- NOTE | 2020-07-06 15:35 | NUR ---
ONE UNIT OF BLOOD, [id number], HANDED TO LISETH FIELD OPERATIONS SUPERVISOR, TO BE TRANSFUSED.
--- NOTE | 2020-07-06 16:15 | NUR ---
BLOOD TRANSFUSION FINISHED. NO REACTION.
--- NOTE | 2020-07-06 16:15 | NUR ---
DIALYSIS COMPLETED, 1.1 LITRE REMOVED.
--- NOTE | 2020-07-06 17:00 | NUR ---
MANUEL CARTAGENA, AT BEDSIDE: THE WOUNDS THE COCCYX AREA WILL BE DEBRIED AT BEDSIDE, ONCE THE H/H BECOMES STABLE AT LEAST FOR A DAY.
--- NOTE | 2020-07-06 17:20 | NUR ---
PT SON, ASHER LEMON CALLED, AND REQUESTED THAT HE SHOULD BE CALLED FOR ANY CONCERN INSTEAD OF THE DAUGHTER, BECAUSE SHE IS NOT IN TOWN. PT SON WAS INFORMED ABOUT THE BLOOD TRANSFUSION AND THE PEG PLACEMENT IN THE FUTURE. HE CONSENTED.
[2020-07-06 17:36] LABS: HEPATITIS B SURFACE AB REACTIVE; HEPATITIS B SURFACE AG NEGATIVE
--- NOTE | 2020-07-06 18:07 | NUR ---
UNABLE TO GIVE G-TUBE MED
--- NOTE | 2020-07-06 19:03 | NUR ---
END SHIFT NOTE: PT TURNED MULTIPLE TIMES, COMFORT MEASURES/HYGIENE/ CLEANING PROVIDED MULTIPLE TIMES. NO CHNAGE IN VENT SETS SINCE AM. PT STILL OFF THE LEVOPHED, MAINTAINING BP WITHIN PARAMETERS.
[2020-07-06] MEDS ORDERED: DIATR MEGLU/DIATRIZOATE SODIUM 30 ML BOTTLE PO ONE (19:15)
[2020-07-06] MEDS ORDERED: DIATR MEGLU/DIATRIZOATE SODIUM 30 ML BOTTLE ONE (19:21)
--- NOTE | 2020-07-06 19:24 | NUR ---
PEG OUT. DR MARTINEZ PLACED 12 FRINGE BRANCH CATH TO KEEP STOMA OPEN.
--- NOTE | 2020-07-06 20:00 | NUR ---
PATIENT IN BED, PLACED ON RIGHT SIDE. PERMACATH DRESSING CLEAN AND INTACT ON RIGHT CHEST WALL. PICCLINE ON LEFT UPPER ARM WITH WHITE CAP PATENT AND BLUE CAP UNABLE TO FLUSH. VENT SETTING A/C 26, TIDAL VOLUME 550 AND PEEP 5, WITH 30% FIO2. HAS RECTAL TUBE IN PLACE.
[2020-07-06] MEDS ORDERED: MEROPENEM 1GM/NS 100ML IVPB **ER PYXIS ONLY IV ONE (20:11)
--- NOTE | 2020-07-06 20:21 | NUR ---
DR MARTINEZ SPOKE WITH DR JOYA REGARDING PLACING A 12FRINGE BRANCH ON G TUBE SITE.
[2020-07-06] MEDS: ATORVASTATIN 20 MG TABLET GT SCH (21:15)
--- NOTE | 2020-07-06 22:28 | NUR ---
Dr Wood spoke to DR Harley SINGH gleason operator for [employer]. Ok to transfer to [facility].
--- NOTE | 2020-07-07 00:10 | NUR ---
Transfer to 3rd floor [facility] via gurny with no distress.
[2020-07-07 02:01] VITALS: BP 120/46
[2020-07-07] MEDS: MIDODRINE HCL 5 MG TABLET PO SCH (06:08)
[2020-07-07 06:48] LABS: BASOPHILS % (AUTO) 0.2 % (0.0-2.0); EOSINOPHILS # (AUTO) 0.1 K/uL (0.0-0.7); EOSINOPHILS % (AUTO) 0.7 % (0.0-7.0); HEMATOCRIT 29.2 % (36.7-47.1); HEMOGLOBIN 9.1 g/dL (12.5-16.3); LYMPHOCYTES # (AUTO) 0.6 K/uL (20.0-40.0); MEAN CORPUSCULAR HEMOGLOBIN 29.9 uug (23.8-33.4); MEAN CORPUSCULAR HGB CONC 31 g/dL (32.5-36.3); MEAN CORPUSCULAR VOLUME 95.9 fL (73.0-96.2); MONOCYTES # (AUTO) 1.1 K/uL (2.0-10.0); NEUTROPHILS % (AUTO) 91.1 % (38.5-71.5); PLATELET COUNT (AUTO) 283 K/uL (152-348); RED BLOOD CELL COUNT(AUTO) 3.04 MIL/uL (4.06-5.63); WHITE BLOOD COUNT (AUTO) 20.9 K/uL (3.6-10.2)
[2020-07-07 07:05] VITALS: BP 108/54
[2020-07-07 07:13] LABS: CARBON DIOXIDE 25 mmol/L (21-32); CHLORIDE 102 mmol/L (98-107); CREATININE 2.8 mg/dL (0.6-1.3); GLUCOSE 116 mg/dL (74-106); UREA NITROGEN, BLOOD 45 mg/dL (7-18)
[2020-07-07 07:18] LABS: MAGNESIUM 1.8 mg/dL (1.8-2.4); PHOSPHOROUS 4.6 mg/dL (2.5-4.9)
[2020-07-07 07:30] VITALS: BP 112/52
[2020-07-07] MEDS: MEROPENEM 500 MG in IV NORMAL SALINE 50 ML IV SCH ×2 (10:47→20:31)
--- NOTE | 2020-07-07 11:25 | NUR ---
patient PICC line is not working, spoke to Karly CHILD with order to remove the PICC line and insert new one, supervisory cbp officer made aware.
[2020-07-07 11:31] VITALS: BP 104/44
--- NOTE | 2020-07-07 11:42 | NUR ---
G-TUBE WITH POSITIVE PLACEMENT, PER NURSE EXAMINER GAURAV MENDOZA TO GIVE MEDS THROUGH G-TUBE
[2020-07-07] MEDS: CLOTRIMAZOLE 1% CREAM 30 GM TUBE TOP SCH ×2 (11:44→17:31)
[2020-07-07] MEDS: SODIUM HYPOCHLORITE 0.125% (QUARTER STRENGTH) 473 ML BOTTLE TP SCH ×2 (11:45→17:31)
[2020-07-07] MEDS: CALCIUM ACETATE 667 MG CAPSULE GT SCH ×2 (11:49→17:32)
[2020-07-07] MEDS: FINASTERIDE 5 MG TABLET GT SCH (11:49)
[2020-07-07] MEDS: ASPIRIN 81 MG TAB.CHEW GT SCH (11:49)
[2020-07-07] MEDS ORDERED: POTASSIUM CHLORIDE 20 MEQ POWDER PACKET GT ONE (12:00)
[2020-07-07] MEDS ORDERED: POTASSIUM CHLORIDE 50 ML IV SCH (12:00)
--- NOTE | 2020-07-07 12:27 | NUR ---
OK TO START G-TUBE FEEDING NEPRO 40CC/HR PER MD
[2020-07-07] MEDS: MIDODRINE HCL 5 MG TABLET GT SCH ×2 (13:52→22:00)
--- NOTE | 2020-07-07 14:17 | NUR ---
MIDLINE INSERTED BY TECH TO LEFT UPPER ARM #18
--- NOTE | 2020-07-07 15:52 | NUR ---
patient is vent dependent, multiple full thickness wounds to sacral, lower extremities, skin tear to left arm and left hand, +3 pitting edema to both upper extremities, dressing done as ordered by dr Page, heel protectors placed to both heels to protect heels, repositioned and turned every 2 hours, g-tube site is clean and dry, intact with positive placement, medications administered through g-tube, flushed with free water, noted with bleeding from the right lower leg wound, pressure dressing done and monitored, resolved, Flexi tube in place, noted with soft BM in the tube, continue with care as ordered
[2020-07-07 16:00] VITALS: BP 96/38
[2020-07-07] MEDS: NEPRO 1000 ML GT PRN (16:05)
[2020-07-07] MEDS: PANTOPRAZOLE SODIUM 40 MG VIAL IV SCH ×2 (17:31→20:39)
--- NOTE | 2020-07-07 19:40 | NUR ---
Obtunded, HOB elevated, on mechanical ventilator with prescribed setting tolerated well. Oropharangeal suctioning rendered with small amount of thick to thin white secretion, tolerated well. Track intact and patent. Gt feeding via Enteral pump running at 40 cc/hour as ordered. No s/s of aspiration. Generalized swelling noted. Rectal tube intact with small amount of soft loose brown colored stool. Continue care as planned.
[2020-07-07 20:24] VITALS: BP 120/37
[2020-07-07] MEDS: ATORVASTATIN 20 MG TABLET GT SCH (20:39)
[2020-07-07] MEDS ORDERED: LIDOCAINE 1%-EPI 1:100,000 20 ML VIAL IJ ONE (21:45)
[2020-07-07] MEDS ORDERED: SILVER NITRATE APPLICATOR STICK EACH TP ONE (21:45)
[2020-07-08 00:39] VITALS: BP 100/43
[2020-07-08 04:39] VITALS: BP 121/41
[2020-07-08] MEDS: MIDODRINE HCL 5 MG TABLET GT SCH ×3 (06:00→21:25)
--- NOTE | 2020-07-08 06:24 | NUR ---
Shift End report: VS WNL. Proamatide been held due to BP above parameter level. No s/s of pain/discomforts. Frequent trach suctioning rendered as tolerated. Turned and repositioned for comfort. Sacral wounds treatment done Continue care as planned.
[2020-07-08 06:45] LABS: BASOPHILS % (AUTO) 0.1 % (0.0-2.0); EOSINOPHILS # (AUTO) 0.1 K/uL (0.0-0.7); EOSINOPHILS % (AUTO) 0.4 % (0.0-7.0); HEMATOCRIT 25.3 % (36.7-47.1); LYMPHOCYTES # (AUTO) 0.7 K/uL (20.0-40.0); LYMPHOCYTES % (AUTO) 2.1 % (20.5-51.5); MEAN CORPUSCULAR HEMOGLOBIN 29.9 uug (23.8-33.4); MEAN CORPUSCULAR HGB CONC 32 g/dL (32.5-36.3); MEAN CORPUSCULAR VOLUME 94.5 fL (73.0-96.2); MONOCYTES # (AUTO) 1.3 K/uL (2.0-10.0); MONOCYTES % (AUTO) 4.2 % (0.0-11.0); NEUTROPHILS # (AUTO) 28.7 K/uL (1.8-8.9); NEUTROPHILS % (AUTO) 93.2 % (38.5-71.5); PLATELET COUNT (AUTO) 287 K/uL (152-348); RED BLOOD CELL COUNT(AUTO) 2.67 MIL/uL (4.06-5.63)
[2020-07-08 06:55] LABS: CARBON DIOXIDE 26 mmol/L (21-32); CHLORIDE 104 mmol/L (98-107); CREATININE 3.4 mg/dL (0.6-1.3); GLUCOSE 191 mg/dL (74-106); POTASSIUM 3.2 mmol/L (3.5-5.1); UREA NITROGEN, BLOOD 55 mg/dL (7-18)
[2020-07-08 06:57] LABS: WHITE BLOOD COUNT (AUTO) 30.8 K/uL (3.6-10.2)
--- NOTE | 2020-07-08 06:58 | NUR ---
Claire from the lab relayed patient WBC:30.8. Will endorse to oncoming nurse.
[2020-07-08] MEDS: ASPIRIN 81 MG TAB.CHEW GT SCH (08:02)
[2020-07-08] MEDS: MEROPENEM 500 MG in IV NORMAL SALINE 50 ML IV SCH ×2 (08:02→20:12)
[2020-07-08] MEDS: CALCIUM ACETATE 667 MG CAPSULE GT SCH ×3 (08:03→17:26)
[2020-07-08] MEDS: PANTOPRAZOLE SODIUM 40 MG VIAL IV SCH ×2 (08:03→20:30)
[2020-07-08] MEDS: FINASTERIDE 5 MG TABLET GT SCH (08:03)
[2020-07-08] MEDS: SODIUM HYPOCHLORITE 0.125% (QUARTER STRENGTH) 473 ML BOTTLE TP SCH ×2 (08:04→16:28)
[2020-07-08] MEDS: CLOTRIMAZOLE 1% CREAM 30 GM TUBE TOP SCH ×2 (08:04→16:27)
[2020-07-08] MEDS: Z GUARD REMEDY PASTE 57 GM TUBE TOP PRN (08:05)
[2020-07-08] MEDS ORDERED: POTASSIUM CHLORIDE 20 MEQ POWDER PACKET GT ONE (09:45)
[2020-07-08] MEDS ORDERED: LIDOCAINE 1%-EPI 1:100,000 20 ML VIAL IJ PRN (10:15)
[2020-07-08] MEDS ORDERED: SILVER NITRATE APPLICATOR STICK EACH TP PRN (10:15)
[2020-07-08 11:24] VITALS: BP 132/20
[2020-07-08] MEDS: NEPRO 1000 ML GT PRN (12:36)
--- NOTE | 2020-07-08 16:31 | NUR ---
SEEN BY DR BIRMINGHAM AND PLASTIC BATTERY ASSEMBLER MARVIN NOTED ELVATED WBC WILL FOLLOW-UP CULTURE, PATIENT REMAINS AFEBRILE, A-FIB ON MONITOR, TOLERATING FEEDING WELL.
[2020-07-08 16:41] VITALS: BP 110/86
--- NOTE | 2020-07-08 19:30 | NUR ---
RECEIVED PT IN A SPECIALTY MATTRESS. PT ON VENT. PT IN NO ACUTE DISTRESS. IV INTACT. PT ON CONTINUOUS FEEDING. PT ON RECTAL TUBE. PT OBSERVED TO HAVE SWELLING OF BILATERAL ARMS . PT HAVE MULTIPLE SKIN ISSUES. PT TURNED AND REPOSITIONED. SAFETY AND COMFORT PROVIDED. WILL CONTINUE TO MONITOR.
[2020-07-08] MEDS: ACETAMINOPHEN 325 MG TABLET PO PRN ×2 (20:03→20:41)
[2020-07-08 20:17] VITALS: BP_SYST 137; BP_SYST 67; BP_DIAS 113; BP_DIAS 45
[2020-07-08] MEDS: ATORVASTATIN 20 MG TABLET GT SCH (20:41)
[2020-07-08] MEDS ORDERED: VANCOMYCIN IV 500 MG in IV DEXTROSE 5% 100 ML IV ONE (21:00)
--- NOTE | 2020-07-08 22:30 | NUR ---
NOTIFY PICK REMOVER REGARDING PT RECENT BLOOD PRESSURE. NO ORDERS GIVEN. PICK REMOVER KNOWS THAT PT TENDS TO HAVE LOW BP. MIDODRINE ROUTINE GIVEN. PT IN NO ACUTE DISTRESS. WILL CONTINUE TO MONITOR.
[2020-07-09] VITALS (15 sets, daily range): BP systolic 79–150; BP diastolic 35–69
[2020-07-09 06:36] LABS: HEMATOCRIT 25.2 % (36.7-47.1); HEMOGLOBIN 7.5 g/dL (12.5-16.3); LYMPHOCYTES % (AUTO) 2.6 % (20.5-51.5); MEAN CORPUSCULAR HEMOGLOBIN 29.7 uug (23.8-33.4); MEAN CORPUSCULAR HGB CONC 30 g/dL (32.5-36.3); MEAN CORPUSCULAR VOLUME 100.2 fL (73.0-96.2); MONOCYTES # (AUTO) 1.4 K/uL (2.0-10.0); MONOCYTES % (AUTO) 3.5 % (0.0-11.0); NEUTROPHILS # (AUTO) 38.1 K/uL (1.8-8.9); NEUTROPHILS % (AUTO) 93.9 % (38.5-71.5); PLATELET COUNT (AUTO) 247 K/uL (152-348); RED BLOOD CELL COUNT(AUTO) 2.51 MIL/uL (4.06-5.63)
[2020-07-09] MEDS: MIDODRINE HCL 5 MG TABLET GT SCH ×3 (06:41→21:33)
--- NOTE | 2020-07-09 06:46 | NUR ---
PT SLEPT INTERMITTENTLY. PT IN NO ACUTE DISTRESS. IV INTACT. PRESCRIBED MEDICATION GIVEN AND PT TOLERATED IT WELL. WOUND TREATMENT DONE. PT ON CONTROLLED AFIB. PT ON CONTINUOUS FEEDING AT 40 CC/HR. SAFETY AND COMFORT PROVIDED. WILL ENDORSE TO INCOMING NURSE FOR CONTINUITY OF CARE.
[2020-07-09 06:47] LABS: WHITE BLOOD COUNT (AUTO) 40.6 K/uL (3.6-10.2)
[2020-07-09 07:19] LABS: CARBON DIOXIDE 20 mmol/L (21-32); CHLORIDE 107 mmol/L (98-107); CREATININE 3.2 mg/dL (0.6-1.3); GLUCOSE 299 mg/dL (74-106); PHOSPHOROUS 4.8 mg/dL (2.5-4.9); POTASSIUM 3.1 mmol/L (3.5-5.1); UREA NITROGEN, BLOOD 47 mg/dL (7-18)
--- NOTE | 2020-07-09 08:00 | NUR ---
RESTING COMFORTABLY IN BED WITH EYES CLOSED. NO SS OF PAIN DISTRESS WITH CURRENT VENT SETTINGS
[2020-07-09] MEDS ORDERED: MIDODRINE HCL 5 MG TABLET PO ONE (08:15)
[2020-07-09] MEDS: CALCIUM ACETATE 667 MG CAPSULE GT SCH ×3 (08:55→17:34)
[2020-07-09] MEDS: FINASTERIDE 5 MG TABLET GT SCH (08:55)
[2020-07-09] MEDS: ASPIRIN 81 MG TAB.CHEW GT SCH (08:55)
[2020-07-09] MEDS: MEROPENEM 500 MG in IV NORMAL SALINE 50 ML IV SCH (08:55)
[2020-07-09] MEDS: PANTOPRAZOLE SODIUM 40 MG VIAL IV SCH ×2 (08:55→21:33)
[2020-07-09] MEDS: SODIUM HYPOCHLORITE 0.125% (QUARTER STRENGTH) 473 ML BOTTLE TP SCH ×2 (08:56→15:51)
[2020-07-09] MEDS: CLOTRIMAZOLE 1% CREAM 30 GM TUBE TOP SCH ×2 (08:56→15:51)
[2020-07-09] MEDS ORDERED: POTASSIUM CHLORIDE 20 MEQ POWDER PACKET GT ONE (09:30)
--- NOTE | 2020-07-09 10:00 | NUR ---
SEEN BY DR FARIA FOR CARDIAC FOLLOW-UP SEE NOTES
--- NOTE | 2020-07-09 13:08 | NUR ---
NO ACUTE CHANGE FROM PREVIOUS ASSESSMENT REMAINS AFIB ON MONITOR. TOLERATING FEEDING WELL AT 40 ML/HR.
[2020-07-09 15:47] LABS: ABG PCO2 29.5 mmHg (35.0-45.0); ABG PH 7.404 (7.350-7.450); ABG PO2 80.6 mmHg (75.0-100.0); ABG SITE RIGHT RADIAL; ABG TOTAL HEMOGLOBIN 7.2 G/dL (13.5-18.0); COHb 2.4 % (0.5-1.5); MetHb 0.7 % (0.0-1.5); O2Hb 92.2 % (94.0-97.0); VENT MODE VENT - A/C; VT, ABG 550 mL
[2020-07-09] MEDS ORDERED: NOREPINEPHRINE BITARTRATE 32 MG in IV NORMAL SALINE 218 ML IV PRN (16:45)
[2020-07-09] MEDS ORDERED: ALBUMIN HUMAN 25% 100 ML IV ONE (17:15)
[2020-07-09] MEDS: METRONIDAZOLE 500 MG/NS 100ML 500 MG in PREMIXED 1 EACH IV SCH (17:37)
[2020-07-09] MEDS: NEPRO 1000 ML GT PRN (17:44)
[2020-07-09] MEDS ORDERED: DOSING PER PHARMACY-AMIKACIN IV XX PRN (17:45)
--- NOTE | 2020-07-09 18:10 | NUR ---
PATIENT WITH ONGOING HEMODIALYSIS. FOR TRANSFER TO ICU FOR HIGHER LEVEL OF CARE POST DIALYSIS, WEAVING MACHINE OPERATOR AND ICU STAFF AWARE
[2020-07-09] MEDS ORDERED: AMIKACIN 750 MG in IV DEXTROSE 5% 100 ML IV ONE (20:30)
--- NOTE | 2020-07-09 21:00 | NUR ---
Received patient via gurney from ROB Spear. Patient is Trached and Vent settings are: PSV8 -- Fio2: 70% -- TV: 550 -- it is a Shiley XL 8. Nepro running at 40cc/hr continuously. Right upper arm Mid Line patent. Patient was brought down for higher level of care. He is on Levophed at 0.1mcg/kg/min after i initiated the infusion prior to transfer to prevent any Hypotensive crash. Patient is obtunded and does not respond whatsoever. Has multiple unstageable wound that require debridement. Will initiate plan of care.
[2020-07-09 21:04] LABS: BAND % (MANUAL) 3 % (0-10); LYMPHOCYTES % (MANUAL) 4 % (20-40); MONOCYTES % (MANUAL) 3 % (2-10); NEUTROPHILS % (MANUAL) 90 % (42-75)
--- NOTE | 2020-07-09 21:05 | NUR ---
Patient thoroughly cleaned and wound care done. Patient had the entire bed soiled upon arrival to the ICU. Flexiseal was not in place and the flexiseal bag was leaking.
--- NOTE | 2020-07-09 21:30 | NUR ---
received general edema on right and upper arm , dressing rendered , perma cath on right sublavian intact , rectal tube replaced , dusky in color
[2020-07-09] MEDS: ATORVASTATIN 20 MG TABLET GT SCH (21:37)
[2020-07-10] VITALS (48 sets, daily range): BP systolic 91–177; BP diastolic 32–76
[2020-07-10] MEDS: METRONIDAZOLE 500 MG/NS 100ML 500 MG in PREMIXED 1 EACH IV SCH ×3 (00:10→16:20)
[2020-07-10] MEDS: IV NORMAL SALINE 500 ML IV PRN (05:00)
[2020-07-10] MEDS: MIDODRINE HCL 5 MG TABLET GT SCH ×3 (06:02→22:00)
--- NOTE | 2020-07-10 07:23 | NUR ---
Handing patient off to AM nurse. VSS. Afebrile. Clean and comfortable. Safety measures in place. Plan of care done throughout shift. All orders carried out. All pertinent information endorsed to AM nurse. Flexiseal intact. Right Upper arm midline in place and intact. RU chest PermCath clean and intact. Endorsed information to AM nurse.
--- NOTE | 2020-07-10 08:00 | NUR ---
dr. garcia in the unit
--- NOTE | 2020-07-10 09:18 | NUR ---
dr warner in the unit to see patient. plan for dialysis tomorrow. Called lab for draw, they did not draw labs today yet.
[2020-07-10] MEDS: PANTOPRAZOLE SODIUM 40 MG VIAL IV SCH ×2 (09:37→21:00)
[2020-07-10] MEDS: FINASTERIDE 5 MG TABLET GT SCH (09:37)
[2020-07-10 09:47] LABS: BASOPHILS % (AUTO) 0.1 % (0.0-2.0); HEMATOCRIT 27.6 % (36.7-47.1); HEMOGLOBIN 8.4 g/dL (12.5-16.3); LYMPHOCYTES # (AUTO) 0.7 K/uL (20.0-40.0); LYMPHOCYTES % (AUTO) 1.5 % (20.5-51.5); MEAN CORPUSCULAR HEMOGLOBIN 29.3 uug (23.8-33.4); MEAN CORPUSCULAR HGB CONC 30 g/dL (32.5-36.3); MEAN CORPUSCULAR VOLUME 96.8 fL (73.0-96.2); MONOCYTES # (AUTO) 2.1 K/uL (2.0-10.0); MONOCYTES % (AUTO) 4.3 % (0.0-11.0); NEUTROPHILS # (AUTO) 45.5 K/uL (1.8-8.9); NEUTROPHILS % (AUTO) 94.1 % (38.5-71.5); PLATELET COUNT (AUTO) 347 K/uL (152-348); RED BLOOD CELL COUNT(AUTO) 2.85 MIL/uL (4.06-5.63)
[2020-07-10 10:01] LABS: CARBON DIOXIDE 25 mmol/L (21-32); CHLORIDE 107 mmol/L (98-107); CREATININE 3.5 mg/dL (0.6-1.3); MAGNESIUM 1.9 mg/dL (1.8-2.4); PHOSPHOROUS 3.6 mg/dL (2.5-4.9); UREA NITROGEN, BLOOD 61 mg/dL (7-18)
[2020-07-10 10:04] LABS: ABG BASE EXCESS -3.1 mmol/L; ABG HCO3 21.1 mmol/L; ABG PH 7.411 (7.350-7.450); ABG PO2 137.4 mmHg (75.0-100.0); ABG SITE RIGHT RADIAL; ABG TOTAL HEMOGLOBIN 8.3 G/dL (13.5-18.0); COHb 1.3 % (0.5-1.5); MetHb 0.1 % (0.0-1.5); O2Hb 97.9 % (94.0-97.0); VENT MODE VENT - A/C; VT, ABG 550 mL
[2020-07-10 10:04] LABS: ALANINE AMINOTRANSFERASE 19 U/L (16-63); ALKALINE PHOSPHATASE 316 U/L (50-136); ASPARTATE AMINOTRANSFERASE 104 U/L (15-37); BILIRUBIN,DIRECT 0.3 mg/dL (0.0-0.2); BILIRUBIN,TOTAL 0.6 mg/dL (0.2-1.0); CARBON DIOXIDE 24 mmol/L (21-32); CHLORIDE 107 mmol/L (98-107); CREATININE 3.5 mg/dL (0.6-1.3); TOTAL PROTEIN, SERUM 5.3 g/dL (6.4-8.2); UREA NITROGEN, BLOOD 61 mg/dL (7-18)
[2020-07-10 10:05] LABS: GLUCOSE 435 mg/dL (74-106); GLUCOSE 438 mg/dL (74-106); POTASSIUM 2.3 mmol/L (3.5-5.1); WHITE BLOOD COUNT (AUTO) 48.3 K/uL (3.6-10.2)
--- NOTE | 2020-07-10 10:11 | NUR ---
harris marcelino informed of critical labs and ID in the unit updated regarding labs
[2020-07-10] MEDS ORDERED: POTASSIUM CHLORIDE 50 ML IV SCH (10:30)
[2020-07-10] MEDS ORDERED: IV NORMAL SALINE 1000 ML BAG IV ONE (10:30)
[2020-07-10] MEDS ORDERED: DEXTROSE 50% 50 ML DISP.SYRIN IV PRN (10:30)
[2020-07-10] MEDS ORDERED: NS IV ONE (10:45)
[2020-07-10] MEDS: INSULIN REGULAR, HUMAN 300 UNIT/3 ML VIAL SQ PRN ×3 (10:50→18:05)
[2020-07-10] MEDS ORDERED: IV NS 1000 ML 1,000 ML IV ONE ×2 (11:00→11:15)
[2020-07-10] MEDS: POTASSIUM CHLORIDE 50 ML IV SCH ×9 (11:12→23:16)
[2020-07-10] MEDS: BLOOD SUGAR DIAGNOSTIC 1 EACH STRIP VI SCH ×2 (12:00→18:01)
[2020-07-10] MEDS ORDERED: ALBUMIN HUMAN 25% 50 ML IV ONE (12:00)
[2020-07-10] MEDS: CALCIUM ACETATE 667 MG CAPSULE GT SCH ×3 (12:37→17:51)
[2020-07-10] MEDS: NOREPINEPHRINE BITARTRATE 8 MG in IV NORMAL SALINE 242 ML IV PRN ×2 (13:20→13:39)
[2020-07-10] MEDS: SODIUM HYPOCHLORITE 0.125% (QUARTER STRENGTH) 473 ML BOTTLE TP SCH ×3 (13:21→22:31)
[2020-07-10] MEDS: CLOTRIMAZOLE 1% CREAM 30 GM TUBE TOP SCH ×2 (13:21→16:16)
[2020-07-10 16:57] LABS: BAND % (MANUAL) 7 % (0-10); LYMPHOCYTES % (MANUAL) 1 % (20-40); MONOCYTES % (MANUAL) 3 % (2-10); NEUTROPHILS % (MANUAL) 89 % (42-75)
[2020-07-10] MEDS ORDERED: CEFEPIME HCL 1 G in IV DEXTROSE 5% 50 ML IV ONE (17:00)
[2020-07-10 18:29] LABS: CARBON DIOXIDE 22 mmol/L (21-32); CHLORIDE 111 mmol/L (98-107); CREATININE 3.6 mg/dL (0.6-1.3); GLUCOSE 199 mg/dL (74-106); UREA NITROGEN, BLOOD 61 mg/dL (7-18)
[2020-07-10 18:50] LABS: POTASSIUM 2.5 mmol/L (3.5-5.1)
--- NOTE | 2020-07-10 19:20 | NUR ---
receeived patient levophed at 0.04 mcg
--- NOTE | 2020-07-10 19:30 | NUR ---
received patient with spontaneous eye opening , unable to follow command , trach inner cannula intact , vent setting of ac 26 550 5 60% . nephro gt at 40 ml , no drainage on the site , rectal tube intact , midline and ga 22 right hand intact , generlized swelling and multiple pressure sores , dresisng intact
[2020-07-10] MEDS: ATORVASTATIN 20 MG TABLET GT SCH (20:59)
--- NOTE | 2020-07-10 21:00 | NUR ---
adrián de la torre , tiried to unsuccessfully milk it and flushed , met with lots of resistance , draingae around the area present. harris marcelino informed
--- NOTE | 2020-07-10 21:49 | NUR ---
harris marcelino , wedger machine at [facility] to see the gt site ordered received to hold feeding , will follow up with dr dias
--- NOTE | 2020-07-10 21:52 | NUR ---
gt feeding held as ordered
[2020-07-10] MEDS ORDERED: CEFEPIME HCL 1 G in IV DEXTROSE 5% 50 ML IV SCH (22:00)
--- NOTE | 2020-07-10 22:48 | NUR ---
picc line nurse in here to insert a picc line
--- NOTE | 2020-07-10 23:15 | NUR ---
cxr done post picc line insertion
--- NOTE | 2020-07-10 23:30 | NUR ---
picc line ok to use
[2020-07-11] VITALS (29 sets, daily range): BP systolic 88–132; BP diastolic 38–78
[2020-07-11] MEDS: BLOOD SUGAR DIAGNOSTIC 1 EACH STRIP VI SCH ×4 (00:12→18:41)
[2020-07-11] MEDS: INSULIN REGULAR, HUMAN 300 UNIT/3 ML VIAL SQ PRN ×4 (00:13→18:41)
[2020-07-11] MEDS ORDERED: DEXTROSE 50% 50 ML DISP.SYRIN IV ONE (00:15)
[2020-07-11] MEDS: IV D5 1/2 NS 1000 ML 1,000 ML IV PRN (00:24)
[2020-07-11] MEDS: POTASSIUM CHLORIDE 50 ML IV SCH ×3 (00:59→03:00)
[2020-07-11] MEDS: METRONIDAZOLE 500 MG/NS 100ML 500 MG in PREMIXED 1 EACH IV SCH ×3 (01:45→18:42)
[2020-07-11] MEDS: NOREPINEPHRINE BITARTRATE 8 MG in IV NORMAL SALINE 242 ML IV PRN (03:37)
[2020-07-11] MEDS: MIDODRINE HCL 5 MG TABLET GT SCH ×3 (05:15→21:01)
[2020-07-11 05:37] LABS: CARBON DIOXIDE 22 mmol/L (21-32); CHLORIDE 112 mmol/L (98-107); CREATININE 3.7 mg/dL (0.6-1.3); GLUCOSE 173 mg/dL (74-106); MAGNESIUM 1.7 mg/dL (1.8-2.4); PHOSPHOROUS 3.1 mg/dL (2.5-4.9); POTASSIUM 3.4 mmol/L (3.5-5.1); UREA NITROGEN, BLOOD 62 mg/dL (7-18)
[2020-07-11 05:50] LABS: EOSINOPHILS # (AUTO) 0.1 K/uL (0.0-0.7); EOSINOPHILS % (AUTO) 0.1 % (0.0-7.0); HEMATOCRIT 24.5 % (36.7-47.1); HEMOGLOBIN 7.6 g/dL (12.5-16.3); LYMPHOCYTES % (AUTO) 2.6 % (20.5-51.5); MEAN CORPUSCULAR HEMOGLOBIN 29.8 uug (23.8-33.4); MEAN CORPUSCULAR HGB CONC 31 g/dL (32.5-36.3); MEAN CORPUSCULAR VOLUME 96.6 fL (73.0-96.2); MONOCYTES # (AUTO) 2.1 K/uL (2.0-10.0); MONOCYTES % (AUTO) 5.4 % (0.0-11.0); NEUTROPHILS # (AUTO) 36.7 K/uL (1.8-8.9); NEUTROPHILS % (AUTO) 91.9 % (38.5-71.5); PLATELET COUNT (AUTO) 220 K/uL (152-348); RED BLOOD CELL COUNT(AUTO) 2.54 MIL/uL (4.06-5.63)
--- NOTE | 2020-07-11 05:55 | NUR ---
opens eyes spontaneously , unable to follow command , vent settings the same , suctioned via trach and orally , with thick yellow secretions , gt clamped as per order of harris marcelino , drainage present around the gt site with minimal yellow draine noted , rectal tube and picc line , perma cath intact , levophed at 0.04 mcg , iv of d5 1/2 ns aat 50 , bs is 174 . , no fever noted . sera for c diff sent
--- NOTE | 2020-07-11 06:00 | NUR ---
left and right arm generalized swelling , , weregla , harris marcelino , fnps aware
[2020-07-11] MEDS: FINASTERIDE 5 MG TABLET GT SCH (08:30)
[2020-07-11] MEDS: CALCIUM ACETATE 667 MG CAPSULE GT SCH ×3 (08:30→18:00)
[2020-07-11 08:44] LABS: ABG HCO3 20.7 mmol/L; ABG PCO2 31.6 mmHg (35.0-45.0); ABG PH 7.435 (7.350-7.450); ABG PO2 139.7 mmHg (75.0-100.0); ABG SITE RIGHT BRACHIAL; ABG TOTAL HEMOGLOBIN 7.8 G/dL (13.5-18.0); COHb 1.9 % (0.5-1.5); MetHb 0.3 % (0.0-1.5); O2Hb 97.3 % (94.0-97.0); VENT MODE VENT - A/C; VT, ABG 550 mL
[2020-07-11] MEDS: PANTOPRAZOLE SODIUM 40 MG VIAL IV SCH ×2 (09:00→21:32)
[2020-07-11] MEDS: CLOTRIMAZOLE 1% CREAM 30 GM TUBE TOP SCH ×2 (09:00→18:43)
--- NOTE | 2020-07-11 09:00 | NUR ---
morning medications previously scanned and documented. The computer timed out before I was able to save the medications.
--- NOTE | 2020-07-11 12:24 | NUR ---
Fiorella Girard and Dr Gilliam spoke and are following up with GI Dr. jules to replace GT. Also noted that site was draining pus from site.
--- NOTE | 2020-07-11 14:17 | NUR ---
doctor porter in the unit to evaluate. peg replacement to be done in the unit tomorrow. obtain consent.
--- NOTE | 2020-07-11 14:17 | NUR ---
keep NPO per Dr. Whitaker, limit as much as possible GT meds unless absolutely necessary.
[2020-07-11 15:49] LABS: BAND % (MANUAL) 6 % (0-10); NEUTROPHILS % (MANUAL) 86 % (42-75)
[2020-07-11 15:50] LABS: LYMPHOCYTES % (MANUAL) 3 % (20-40); MONOCYTES % (MANUAL) 5 % (2-10)
[2020-07-11] MEDS: VANCOMYCIN FOR PO/GT/NG USE PO SCH ×2 (17:00→21:00)
[2020-07-11] MEDS: SODIUM HYPOCHLORITE 0.125% (QUARTER STRENGTH) 473 ML BOTTLE TP SCH (18:43)
[2020-07-11] MEDS: ATORVASTATIN 20 MG TABLET GT SCH (20:59)
[2020-07-11] MEDS: CEFEPIME HCL 0.5 G in IV DEXTROSE 5% 50 ML IV SCH (21:32)
[2020-07-12] VITALS (24 sets, daily range): BP systolic 90–115; BP diastolic 39–55
[2020-07-12] MEDS: METRONIDAZOLE 500 MG/NS 100ML 500 MG in PREMIXED 1 EACH IV SCH ×3 (00:16→17:41)
[2020-07-12] MEDS: BLOOD SUGAR DIAGNOSTIC 1 EACH STRIP VI SCH ×4 (00:27→17:51)
[2020-07-12] MEDS: INSULIN REGULAR, HUMAN 300 UNIT/3 ML VIAL SQ PRN ×4 (00:29→17:51)
[2020-07-12] MEDS: IV D5 1/2 NS 1000 ML 1,000 ML IV PRN ×3 (00:51→22:51)
[2020-07-12 05:45] LABS: BASOPHILS % (AUTO) 0.1 % (0.0-2.0); EOSINOPHILS % (AUTO) 0.1 % (0.0-7.0); HEMATOCRIT 23.4 % (36.7-47.1); LYMPHOCYTES # (AUTO) 0.7 K/uL (20.0-40.0); LYMPHOCYTES % (AUTO) 2.5 % (20.5-51.5); MEAN CORPUSCULAR HEMOGLOBIN 29.6 uug (23.8-33.4); MEAN CORPUSCULAR HGB CONC 31 g/dL (32.5-36.3); MEAN CORPUSCULAR VOLUME 96.9 fL (73.0-96.2); MONOCYTES # (AUTO) 1.3 K/uL (2.0-10.0); MONOCYTES % (AUTO) 4.8 % (0.0-11.0); NEUTROPHILS # (AUTO) 25.5 K/uL (1.8-8.9); NEUTROPHILS % (AUTO) 92.5 % (38.5-71.5); PLATELET COUNT (AUTO) 223 K/uL (152-348); WHITE BLOOD COUNT (AUTO) 27.5 K/uL (3.6-10.2)
[2020-07-12 05:50] LABS: CARBON DIOXIDE 25 mmol/L (21-32); CHLORIDE 116 mmol/L (98-107); CREATININE 3.4 mg/dL (0.6-1.3); GLUCOSE 200 mg/dL (74-106); POTASSIUM 3.1 mmol/L (3.5-5.1); UREA NITROGEN, BLOOD 49 mg/dL (7-18)
[2020-07-12 05:54] LABS: MAGNESIUM 1.7 mg/dL (1.8-2.4); PHOSPHOROUS 3.1 mg/dL (2.5-4.9)
[2020-07-12] MEDS: MIDODRINE HCL 5 MG TABLET GT SCH ×3 (06:00→20:35)
[2020-07-12 06:05] LABS: HEMOGLOBIN 7.2 g/dL (12.5-16.3); RED BLOOD CELL COUNT(AUTO) 2.42 MIL/uL (4.06-5.63)
[2020-07-12] MEDS: NOREPINEPHRINE BITARTRATE 8 MG in IV NORMAL SALINE 242 ML IV PRN (06:42)
[2020-07-12] MEDS: VANCOMYCIN FOR PO/GT/NG USE PO SCH ×4 (07:51→20:35)
[2020-07-12] MEDS: FINASTERIDE 5 MG TABLET GT SCH (07:51)
[2020-07-12] MEDS: CALCIUM ACETATE 667 MG CAPSULE GT SCH ×3 (07:51→17:42)
[2020-07-12] MEDS: PANTOPRAZOLE SODIUM 40 MG VIAL IV SCH ×2 (07:57→20:40)
[2020-07-12] MEDS: CLOTRIMAZOLE 1% CREAM 30 GM TUBE TOP SCH ×2 (07:57→17:41)
[2020-07-12] MEDS: SODIUM HYPOCHLORITE 0.125% (QUARTER STRENGTH) 473 ML BOTTLE TP SCH ×2 (07:58→17:42)
[2020-07-12] MEDS ORDERED: EPOETIN ALFA 10,000 UNITS/ML VIAL SQ SCH (15:00)
[2020-07-12] MEDS ORDERED: POTASSIUM CHLORIDE 20 MEQ POWDER PACKET GT ONE (17:30)
[2020-07-12] MEDS: EPOETIN ALFA 10,000 UNITS/ML VIAL SQ SCH (17:41)
[2020-07-12] MEDS: ATORVASTATIN 20 MG TABLET GT SCH (20:34)
[2020-07-12] MEDS: POTASSIUM CHLORIDE 50 ML IV SCH ×3 (20:39→22:51)
[2020-07-12] MEDS: CEFEPIME HCL 0.5 G in IV DEXTROSE 5% 50 ML IV SCH (20:41)
[2020-07-13] VITALS (30 sets, daily range): BP systolic 73–125; BP diastolic 34–66
[2020-07-13] MEDS: POTASSIUM CHLORIDE 50 ML IV SCH (00:12)
[2020-07-13] MEDS: BLOOD SUGAR DIAGNOSTIC 1 EACH STRIP VI SCH ×5 (00:33→23:39)
[2020-07-13] MEDS: INSULIN REGULAR, HUMAN 300 UNIT/3 ML VIAL SQ PRN ×5 (00:34→23:40)
[2020-07-13] MEDS: METRONIDAZOLE 500 MG/NS 100ML 500 MG in PREMIXED 1 EACH IV SCH ×3 (00:36→16:54)
[2020-07-13 05:13] LABS: CARBON DIOXIDE 24 mmol/L (21-32); CHLORIDE 116 mmol/L (98-107); CREATININE 3.7 mg/dL (0.6-1.3); GLUCOSE 158 mg/dL (74-106); POTASSIUM 3.4 mmol/L (3.5-5.1); UREA NITROGEN, BLOOD 52 mg/dL (7-18)
--- NOTE | 2020-07-13 07:46 | NUR ---
new peg replacement completed at bedside. Per kiera Lowe to use peg and resume feeding. also gave verbal order for Reglan 10mg TID
[2020-07-13 07:52] LABS: ABG BASE EXCESS -3.4 mmol/L; ABG HCO3 20.8 mmol/L; ABG PCO2 33.9 mmHg (35.0-45.0); ABG PH 7.405 (7.350-7.450); ABG PO2 62.3 mmHg (75.0-100.0); ABG SITE RIGHT RADIAL; ABG TOTAL HEMOGLOBIN 9.9 G/dL (13.5-18.0); COHb 0.9 % (0.5-1.5); MetHb 0.3 % (0.0-1.5); VENT MODE VENT - A/C; VT, ABG 550 mL
[2020-07-13] MEDS: PANTOPRAZOLE SODIUM 40 MG VIAL IV SCH ×2 (07:58→20:55)
[2020-07-13] MEDS: MIDODRINE HCL 5 MG TABLET GT SCH ×3 (07:59→21:30)
[2020-07-13] MEDS: FINASTERIDE 5 MG TABLET GT SCH (08:00)
[2020-07-13] MEDS: CALCIUM ACETATE 667 MG CAPSULE GT SCH ×3 (08:00→17:11)
[2020-07-13] MEDS: VANCOMYCIN FOR PO/GT/NG USE PO SCH ×4 (08:00→20:56)
[2020-07-13] MEDS: CLOTRIMAZOLE 1% CREAM 30 GM TUBE TOP SCH ×2 (08:01→16:50)
[2020-07-13] MEDS: SODIUM HYPOCHLORITE 0.125% (QUARTER STRENGTH) 473 ML BOTTLE TP SCH ×2 (08:01→16:50)
[2020-07-13] MEDS: NEPRO 1000 ML GT PRN (08:55)
[2020-07-13] MEDS: NOREPINEPHRINE BITARTRATE 8 MG in IV NORMAL SALINE 242 ML IV PRN ×2 (09:16→18:40)
[2020-07-13] MEDS: IV NORMAL SALINE 500 ML IV PRN ×2 (09:52→09:53)
--- NOTE | 2020-07-13 09:55 | NUR ---
Dr. bartholomew in the unit to see pt. full report given
[2020-07-13] MEDS: METOCLOPRAMIDE HCL 10 MG/10 ML UDC PEG SCH ×2 (13:25→21:31)
--- NOTE | 2020-07-13 13:30 | NUR ---
dialysis nurse at bedside for dialysis treatment
[2020-07-13] MEDS ORDERED: METOCLOPRAMIDE HCL 5 MG TABLET PO SCH (14:00)
--- NOTE | 2020-07-13 14:28 | NUR ---
[employer] Fiorella Girard in the unit to see and assess pt. full report given
--- NOTE | 2020-07-13 14:50 | NUR ---
Dr. Dailey in the unit to see & assess pt. full report given
--- NOTE | 2020-07-13 14:51 | NUR ---
ID NURSERYPERSON Lakisha in the unit to see pt with new orders. full report given
[2020-07-13] MEDS ORDERED: VANCOMYCIN IV 1,000 MG in IV DEXTROSE 5% 250 ML IV ONE (18:00)
--- NOTE | 2020-07-13 19:30 | NUR ---
Report received. Patient with trache to mechanical ventilator settings as follows: AC=26, FIO2=40%, RZ=704ev and PEEP=5 cm. O2 saturations 100%. With facial grimacing to pain and stimulation. Rosibel WHALEN at bedside; oral care done by her. Patient turned and repositioned. Sacral wound dressings intact; with strong odor. GT feedings tolerated well. HOB elevated above 30 degrees at all times. On Levophed drip via BILL PICC line for BP support. Assessment completed; see flow sheet for details. Addendum: 07/13/20 at 224 by JORGE LUIS DODGE RN Amended: Links added. Addendum: 07/13/20 at 2248 by JORGE LUIS DODGE RN Amended: Links added. Addendum: 07/13/20 at 2249 by JORGE LUIS DODGE RN Amended: Oly added. Addendum: 07/13/20 at 2251 by JORGE LUIS DODGE RN Amended: Oly added.
--- NOTE | 2020-07-13 20:00 | NUR ---
Levophed drip titrated down; BPs monitored closely. Addendum: 07/13/20 at 2248 by JORGE LUIS DODGE RN Amended: Links added. Addendum: 07/13/20 at 2249 by JORGE LUIS DODGE RN Amended: Links added. Addendum: 07/13/20 at 2251 by JORGE LUIS DODGE RN Amended: Links added.
[2020-07-13] MEDS: ATORVASTATIN 20 MG TABLET GT SCH (20:55)
--- NOTE | 2020-07-13 21:00 | NUR ---
Continue to titrate Levophed drip; BPs above 90 systole. Addendum: 07/13/20 at 2249 by JORGE LUIS DODGE RN Amended: Links added. Addendum: 07/13/20 at 2251 by JORGE LUIS DODGE RN Amended: Links added.
[2020-07-13] MEDS: CEFEPIME HCL 0.5 G in IV DEXTROSE 5% 50 ML IV SCH (21:31)
--- NOTE | 2020-07-13 21:45 | NUR ---
Attempted to dc Levophed drip but unable to. BP down to 81/36; drip restarted at 0.06 mcg/kg/min. Addendum: 07/13/20 at 2251 by JORGE LUIS DODGE RN Amended: Links added.
[2020-07-14] VITALS (26 sets, daily range): BP systolic 88–114; BP diastolic 39–53
[2020-07-14] MEDS: METRONIDAZOLE 500 MG/NS 100ML 500 MG in PREMIXED 1 EACH IV SCH ×3 (01:04→17:43)
[2020-07-14 05:04] LABS: ABG BASE EXCESS -7.9 mmol/L; ABG HCO3 16.8 mmol/L; ABG PCO2 30.8 mmHg (35.0-45.0); ABG PH 7.355 (7.350-7.450); ABG PO2 104.2 mmHg (75.0-100.0); ABG SITE LEFT BRACHIAL; ABG TOTAL HEMOGLOBIN 7.9 G/dL (13.5-18.0); COHb 1.2 % (0.5-1.5); MetHb 0.2 % (0.0-1.5); O2Hb 96.2 % (94.0-97.0); VENT MODE VENT - A/C; VT, ABG 550 mL
[2020-07-14 05:16] LABS: BASOPHILS % (AUTO) 0.1 % (0.0-2.0); EOSINOPHILS # (AUTO) 0.1 K/uL (0.0-0.7); EOSINOPHILS % (AUTO) 0.3 % (0.0-7.0); HEMATOCRIT 25.3 % (36.7-47.1); LYMPHOCYTES % (AUTO) 4.7 % (20.5-51.5); MEAN CORPUSCULAR HEMOGLOBIN 28.9 uug (23.8-33.4); MEAN CORPUSCULAR HGB CONC 29 g/dL (32.5-36.3); MEAN CORPUSCULAR VOLUME 99.8 fL (73.0-96.2); MONOCYTES # (AUTO) 1.2 K/uL (2.0-10.0); MONOCYTES % (AUTO) 5.8 % (0.0-11.0); NEUTROPHILS # (AUTO) 18.3 K/uL (1.8-8.9); NEUTROPHILS % (AUTO) 89.1 % (38.5-71.5); PLATELET COUNT (AUTO) 205 K/uL (152-348); RED BLOOD CELL COUNT(AUTO) 2.53 MIL/uL (4.06-5.63); WHITE BLOOD COUNT (AUTO) 20.6 K/uL (3.6-10.2)
[2020-07-14 05:27] LABS: CARBON DIOXIDE 21 mmol/L (21-32); CHLORIDE 113 mmol/L (98-107); CREATININE 4.4 mg/dL (0.6-1.3); GLUCOSE 289 mg/dL (74-106); MAGNESIUM 1.8 mg/dL (1.8-2.4); PHOSPHOROUS 3.6 mg/dL (2.5-4.9); UREA NITROGEN, BLOOD 62 mg/dL (7-18)
[2020-07-14 05:34] LABS: HEMOGLOBIN 7.3 g/dL (12.5-16.3)
[2020-07-14 05:46] LABS: POTASSIUM 2.8 mmol/L (3.5-5.1)
[2020-07-14] MEDS: MIDODRINE HCL 5 MG TABLET GT SCH ×3 (05:55→22:15)
[2020-07-14] MEDS: METOCLOPRAMIDE HCL 10 MG/10 ML UDC PEG SCH ×3 (05:55→22:13)
[2020-07-14] MEDS: BLOOD SUGAR DIAGNOSTIC 1 EACH STRIP VI SCH ×3 (05:59→17:51)
[2020-07-14] MEDS: INSULIN REGULAR, HUMAN 300 UNIT/3 ML VIAL SQ PRN ×3 (06:01→17:51)
--- NOTE | 2020-07-14 06:30 | NUR ---
Remains on same vent settings. O2 saturations above 94%. Still on Levophed drip at 0.04 mcg/kg/min.
[2020-07-14] MEDS: POTASSIUM CHLORIDE 50 ML IV SCH ×4 (07:48→10:30)
[2020-07-14] MEDS: PANTOPRAZOLE SODIUM 40 MG VIAL IV SCH ×2 (08:03→21:21)
[2020-07-14] MEDS: VANCOMYCIN FOR PO/GT/NG USE PO SCH ×4 (08:03→21:21)
[2020-07-14] MEDS: CALCIUM ACETATE 667 MG CAPSULE GT SCH ×3 (08:03→17:43)
[2020-07-14] MEDS: FINASTERIDE 5 MG TABLET GT SCH (08:03)
[2020-07-14] MEDS: SODIUM HYPOCHLORITE 0.125% (QUARTER STRENGTH) 473 ML BOTTLE TP SCH ×2 (08:04→17:44)
[2020-07-14] MEDS: CLOTRIMAZOLE 1% CREAM 30 GM TUBE TOP SCH ×2 (08:04→17:44)
[2020-07-14] MEDS: ARGININE/GLUTAMINE/CALCIUM BMB 1 EACH POWD.PACK GT SCH (08:06)
[2020-07-14] MEDS: NEPRO 1000 ML GT PRN (08:25)
--- NOTE | 2020-07-14 10:51 | NUR ---
Pt blood culture results showing MRSA. report to ID MATEUSZ Viera with new orders. ELECTRICAL MAINTENANCE TECHNICIAN at bedside to see and assess pt. full report given
[2020-07-14] MEDS: EPOETIN ALFA 10,000 UNITS/ML VIAL SQ SCH (14:34)
[2020-07-14] MEDS: NOREPINEPHRINE BITARTRATE 8 MG in IV NORMAL SALINE 242 ML IV PRN (14:46)
--- NOTE | 2020-07-14 15:50 | NUR ---
Dr. Dailey in the unit to see and assess pt. full report given
[2020-07-14] MEDS: ATORVASTATIN 20 MG TABLET GT SCH (21:20)
--- NOTE | 2020-07-14 21:30 | NUR ---
due medication scan and given ,see emar .
[2020-07-14] MEDS: CEFEPIME HCL 0.5 G in IV DEXTROSE 5% 50 ML IV SCH (22:14)
[2020-07-15] VITALS (35 sets, daily range): BP systolic 86–170; BP diastolic 32–83
--- NOTE | 2020-07-15 00:30 | NUR ---
photo taken on patient wounds placed ion chart . wound care dressing done and follow wound care treatment orders .
[2020-07-15] MEDS: BLOOD SUGAR DIAGNOSTIC 1 EACH STRIP VI SCH ×5 (00:58→23:10)
[2020-07-15] MEDS: METRONIDAZOLE 500 MG/NS 100ML 500 MG in PREMIXED 1 EACH IV SCH ×3 (00:59→17:48)
[2020-07-15] MEDS: INSULIN REGULAR, HUMAN 300 UNIT/3 ML VIAL SQ PRN ×5 (01:43→23:12)
--- NOTE | 2020-07-15 02:00 | NUR ---
weaning Levophed drip now at 0.04 sbp >90 mm/hg.will continue to monitor bp.
--- NOTE | 2020-07-15 03:00 | NUR ---
Levophed drip wean to 0.03 mcg/kg/min.sbp >90 mm/hg.
--- NOTE | 2020-07-15 04:00 | NUR ---
am care done bath patient changed soiled linens and gown . oral care done suction via ett and oral care done . turned and reposition patient ,elevated bilateral upper and lower extremities .
--- NOTE | 2020-07-15 04:30 | NUR ---
unable to wean Levophed drip sbp drops to 80.
[2020-07-15 05:34] LABS: BASOPHILS # (AUTO) 0.1 K/uL (0.0-8.0); BASOPHILS % (AUTO) 0.2 % (0.0-2.0); EOSINOPHILS # (AUTO) 0.1 K/uL (0.0-0.7); EOSINOPHILS % (AUTO) 0.6 % (0.0-7.0); HEMATOCRIT 25.4 % (36.7-47.1); LYMPHOCYTES # (AUTO) 0.9 K/uL (20.0-40.0); LYMPHOCYTES % (AUTO) 3.7 % (20.5-51.5); MEAN CORPUSCULAR HEMOGLOBIN 29.3 uug (23.8-33.4); MEAN CORPUSCULAR HGB CONC 29 g/dL (32.5-36.3); MEAN CORPUSCULAR VOLUME 100.7 fL (73.0-96.2); MONOCYTES # (AUTO) 1.5 K/uL (2.0-10.0); MONOCYTES % (AUTO) 6.4 % (0.0-11.0); NEUTROPHILS # (AUTO) 21.4 K/uL (1.8-8.9); NEUTROPHILS % (AUTO) 89.1 % (38.5-71.5); PLATELET COUNT (AUTO) 202 K/uL (152-348); RED BLOOD CELL COUNT(AUTO) 2.52 MIL/uL (4.06-5.63)
[2020-07-15 05:37] LABS: HEMOGLOBIN 7.4 g/dL (12.5-16.3)
[2020-07-15 05:43] LABS: CARBON DIOXIDE 19 mmol/L (21-32); CHLORIDE 113 mmol/L (98-107); CREATININE 4.8 mg/dL (0.6-1.3); GLUCOSE 280 mg/dL (74-106); MAGNESIUM 1.6 mg/dL (1.8-2.4); PHOSPHOROUS 3.2 mg/dL (2.5-4.9); UREA NITROGEN, BLOOD 70 mg/dL (7-18)
[2020-07-15] MEDS: MIDODRINE HCL 5 MG TABLET GT SCH ×3 (06:16→21:02)
[2020-07-15] MEDS: METOCLOPRAMIDE HCL 10 MG/10 ML UDC PEG SCH ×3 (06:17→21:03)
[2020-07-15] MEDS: NOREPINEPHRINE BITARTRATE 8 MG in IV NORMAL SALINE 242 ML IV PRN ×2 (06:18→15:07)
[2020-07-15] MEDS: CALCIUM ACETATE 667 MG CAPSULE GT SCH ×3 (08:04→17:48)
[2020-07-15] MEDS: PANTOPRAZOLE SODIUM 40 MG VIAL IV SCH ×2 (08:05→20:59)
[2020-07-15] MEDS: SODIUM HYPOCHLORITE 0.125% (QUARTER STRENGTH) 473 ML BOTTLE TP SCH ×2 (08:05→17:49)
[2020-07-15] MEDS: FINASTERIDE 5 MG TABLET GT SCH (08:05)
[2020-07-15] MEDS: VANCOMYCIN FOR PO/GT/NG USE PO SCH ×4 (08:05→21:00)
[2020-07-15] MEDS: CLOTRIMAZOLE 1% CREAM 30 GM TUBE TOP SCH ×2 (08:05→17:48)
--- NOTE | 2020-07-15 08:05 | NUR ---
Dr. Will in the unit to see and assess pt. full report given including AM labs, pus around GT site and noted muscle tremors on BUE
[2020-07-15] MEDS: NEPRO 1000 ML GT PRN (08:09)
[2020-07-15] MEDS: MAGNESIUM SULFATE/D5W 100 ML IV SCH ×2 (08:15→09:38)
[2020-07-15] MEDS: ARGININE/GLUTAMINE/CALCIUM BMB 1 EACH POWD.PACK GT SCH (08:16)
[2020-07-15] MEDS: POTASSIUM CHLORIDE 50 ML IV SCH ×4 (08:22→11:19)
[2020-07-15] MEDS: IV NORMAL SALINE 500 ML IV PRN (08:25)
--- NOTE | 2020-07-15 10:00 | NUR ---
EXPLOSIVE OPERATOR Mahnaz Viera in the unit to see and assess pt, with new orders. full report given
--- NOTE | 2020-07-15 11:46 | NUR ---
Dr. Dailey in the unit to see and assess pt. full report given
--- NOTE | 2020-07-15 12:10 | NUR ---
Dialysis in progress. dialysis nurse at bedside. VSS, will continue to monitor
--- NOTE | 2020-07-15 13:37 | NUR ---
Pt completed dialysis. net fluid taken out 900ml, given 200ml back during dialysis by HD nurse. pt did not tolerate dialysis well, noted with desaturation to 60s and hypotension to 44/20. Levop/hed increased to 0.3 and FiO2 to 100%. pt O2 saturation increased to 100%, BP improving, currently at 86/30. will continue to monitor
--- NOTE | 2020-07-15 13:50 | NUR ---
Dr. Gilliam also informed of pt's change of condition by RN Connie Bryant
[2020-07-15] MEDS ORDERED: IV NORMAL SALINE 500 ML IV ONE (15:15)
--- NOTE | 2020-07-15 15:33 | NUR ---
during dialysis, I was in another patient's room, when I came to check on pt, pt noted with hypotension as low as BP 44/20, saturation 60s. unsure exactly how long pt was like that. levophed increased and BP improved, oxygen titrated to 100% and saturation went up t0 100%, titrated back down to 40% and sats in the 90s. however shortly after dialysis pt noted with continued hypotension, levo drip titrated per protoccol. pt also noted with desaturation again, FiO2 increased to 75% by RT. pt has decreased response and appears to be obtunded, no cough reflex noted upon suctioning. Called Dr. Will and informed MD of the change of condition and the whole situation and MD gave new orders for STAT ABG, CXR, IV NS 500ml Bolus and to inform Dr. Dailey. Left message for Dr. Dailey, awaiting response. Addendum: 07/15/20 at 1856 by QUITA GUZMÁN RN ABG, CXR relayed to Dr. Dailey with no new orders
[2020-07-15 16:17] LABS: ABG BASE EXCESS -4.1 mmol/L; ABG HCO3 20.2 mmol/L; ABG PCO2 33.2 mmHg (35.0-45.0); ABG PH 7.401 (7.350-7.450); ABG PO2 91.1 mmHg (75.0-100.0); ABG SITE RIGHT RADIAL; ABG TOTAL HEMOGLOBIN 8.9 G/dL (13.5-18.0); COHb 1.2 % (0.5-1.5); MetHb 0.1 % (0.0-1.5); VENT MODE VENT - A/C; VT, ABG 550 mL
[2020-07-15] MEDS: NOREPINEPHRINE BITARTRATE 32 MG in IV NORMAL SALINE 218 ML IV PRN (18:24)
--- NOTE | 2020-07-15 19:20 | NUR ---
shift report given to impregnating tank operator RN Lesli. full report given. pt on trach vent settings AC TV 550, Peep 5 FiO2 65%, pt on Levophed drip @ 0.6mcg
--- NOTE | 2020-07-15 19:30 | NUR ---
Report received; care assumed. Patient with trache to vent, very obtunded doesn't open eyes to pain. Vent settings: AC=26, FIO2=65%, PEEP=5 and MO=464 ml; O2 saturations 100%. On continuous Levophed drip via BILL PICC line. Assessment done; documented. Addendum: 07/15/20 at 2218 by JORGE LUIS DODGE RN Amended: Links added. Addendum: 07/15/20 at 2221 by JORGE LUIS DODGE RN Amended: Links added. Addendum: 07/15/20 at 2222 by JORGE LUIS DODGE RN Amended: Links added.
--- NOTE | 2020-07-15 20:00 | NUR ---
RT @ bedside. Turned and repositioned. Oral care done. With very mild facial grimacing. GT feedings tolerated well. HOB elevated above 30 degrees at all times. Addendum: 07/15/20 at 2221 by JORGE LUIS DODGE RN Amended: Links added. Addendum: 07/15/20 at 2222 by JORGE LUIS DODGE RN Amended: Links added.
--- NOTE | 2020-07-15 20:45 | NUR ---
Levophed drip titrated; BPs monitored closely. Addendum: 07/15/20 at 2222 by JORGE LUIS DODGE RN Amended: Links added.
[2020-07-15] MEDS: ATORVASTATIN 20 MG TABLET GT SCH (20:59)
[2020-07-15] MEDS: CEFEPIME HCL 0.5 G in IV DEXTROSE 5% 50 ML IV SCH (21:04)
[2020-07-15] MEDS: Z GUARD REMEDY PASTE 57 GM TUBE TOP PRN (23:13)
[2020-07-16] VITALS (46 sets, daily range): BP systolic 46–156; BP diastolic 23–85
[2020-07-16] MEDS: METRONIDAZOLE 500 MG/NS 100ML 500 MG in PREMIXED 1 EACH IV SCH ×3 (00:36→16:44)
[2020-07-16] MEDS: IV NORMAL SALINE 250 ML IV PRN (00:51)
--- NOTE | 2020-07-16 04:30 | NUR ---
Am labs drawn from BILL PICC line. Midline MINI leaking; dc'd. With large amounts of oral secretions. No cough or gag reflexes.
[2020-07-16] MEDS: BLOOD SUGAR DIAGNOSTIC 1 EACH STRIP VI SCH ×4 (05:23→23:31)
[2020-07-16] MEDS: METOCLOPRAMIDE HCL 10 MG/10 ML UDC PEG SCH ×3 (05:23→21:32)
[2020-07-16] MEDS: MIDODRINE HCL 5 MG TABLET GT SCH ×3 (05:23→21:32)
[2020-07-16] MEDS: INSULIN REGULAR, HUMAN 300 UNIT/3 ML VIAL SQ PRN ×4 (05:24→23:32)
[2020-07-16 05:27] LABS: BASOPHILS % (AUTO) 0.1 % (0.0-2.0); EOSINOPHILS % (AUTO) 0.1 % (0.0-7.0); HEMATOCRIT 27.3 % (36.7-47.1); LYMPHOCYTES # (AUTO) 0.7 K/uL (20.0-40.0); MEAN CORPUSCULAR HEMOGLOBIN 28.8 uug (23.8-33.4); MEAN CORPUSCULAR HGB CONC 29 g/dL (32.5-36.3); MEAN CORPUSCULAR VOLUME 98.6 fL (73.0-96.2); MONOCYTES # (AUTO) 1.3 K/uL (2.0-10.0); MONOCYTES % (AUTO) 5.3 % (0.0-11.0); NEUTROPHILS # (AUTO) 21.7 K/uL (1.8-8.9); NEUTROPHILS % (AUTO) 91.5 % (38.5-71.5); PLATELET COUNT (AUTO) 213 K/uL (152-348); RED BLOOD CELL COUNT(AUTO) 2.77 MIL/uL (4.06-5.63); WHITE BLOOD COUNT (AUTO) 23.7 K/uL (3.6-10.2)
[2020-07-16 05:38] LABS: CARBON DIOXIDE 21 mmol/L (21-32); CHLORIDE 107 mmol/L (98-107); CREATININE 3.7 mg/dL (0.6-1.3); MAGNESIUM 1.9 mg/dL (1.8-2.4); PHOSPHOROUS 2.9 mg/dL (2.5-4.9); UREA NITROGEN, BLOOD 55 mg/dL (7-18)
[2020-07-16 05:47] LABS: GLUCOSE 396 mg/dL (74-106)
--- NOTE | 2020-07-16 06:57 | NUR ---
Remains comatose. BPs above 90 with Levophed drip at 0.12 mcg/kg/min. O2 saturations above 94% on FIO2=65%.
--- NOTE | 2020-07-16 07:02 | NUR ---
Spoke to Fiorella Girard re: patient's neuro status and over all condition. Advised RN to follow up with Dr. Rhiannon Gilliam re: neuro consult.
[2020-07-16 08:38] LABS: ABG BASE EXCESS -4.4 mmol/L; ABG PCO2 28.8 mmHg (35.0-45.0); ABG PH 7.437 (7.350-7.450); ABG PO2 53.7 mmHg (75.0-100.0); ABG SITE RIGHT RADIAL; ABG TOTAL HEMOGLOBIN 8.9 G/dL (13.5-18.0); COHb 1.5 % (0.5-1.5); MetHb 0.2 % (0.0-1.5); O2Hb 86.7 % (94.0-97.0); VENT MODE VENT - A/C; VT, ABG 550 mL
[2020-07-16] MEDS: FINASTERIDE 5 MG TABLET GT SCH (09:58)
[2020-07-16] MEDS: CALCIUM ACETATE 667 MG CAPSULE GT SCH ×3 (09:58→18:09)
[2020-07-16] MEDS: PANTOPRAZOLE SODIUM 40 MG VIAL IV SCH ×2 (09:59→20:36)
[2020-07-16] MEDS: VANCOMYCIN FOR PO/GT/NG USE PO SCH ×4 (10:00→20:37)
[2020-07-16] MEDS: ARGININE/GLUTAMINE/CALCIUM BMB 1 EACH POWD.PACK GT SCH (10:02)
[2020-07-16] MEDS: CLOTRIMAZOLE 1% CREAM 30 GM TUBE TOP SCH ×2 (10:03→16:44)
[2020-07-16] MEDS: SODIUM HYPOCHLORITE 0.125% (QUARTER STRENGTH) 473 ML BOTTLE TP SCH ×2 (10:03→16:45)
[2020-07-16] MEDS ORDERED: NOREPINEPHRINE BITARTRATE 8 MG in IV NORMAL SALINE 242 ML IV PRN (12:15)
--- NOTE | 2020-07-16 15:20 | NUR ---
patient taken down to CT scan patient on monitor no abnormalities during travel. Returned and patient hooked up to bedside monitor
--- NOTE | 2020-07-16 15:40 | NUR ---
Did patient wound care. Patient did not tolerate. blood pressure went down to 60's systolic restarted levophed drip.
[2020-07-16] MEDS: EPOETIN ALFA 10,000 UNITS/ML VIAL SQ SCH (16:43)
--- NOTE | 2020-07-16 19:10 | NUR ---
Report received. Spoke to Dr. Will re: CT head result. Advised RN to call Dr. Jauregui and inform him of consult as well the CT result. Spoke to Dr. Jauregui; made aware of consult and patient's condition. No orders. Patient admitted 06/29/20 for SEPSIS. With trache to vent settings: AC=26, FIO2=50%, PEEP=5 cm and MT=413hu. O2 saturations 96-100%. Comatose. Pupils 4 mm; with sluggish reaction to light. Extremities flaccid. On Levophed drip for BP support via BILL PICC line. Assessment done; see flow sheet for complete data. Addendum: 07/17/20 at 0001 by JORGE LUIS DODGE RN Amended: Links added. Addendum: 07/17/20 at 0005 by JORGE LUIS DODGE RN Amended: Links added.
--- NOTE | 2020-07-16 20:00 | NUR ---
Hypothermic Temp=94.2 axillary. Geno toure turned on. Turned and repositioned. Flexi seal irrigated gently; with large amounts of brown semisoft liquid stools. Dressings to wound changed. Sacral wound extends to buttocks with strong foul smell. Skin care provided. No cough or gag reflexes during suctioning. Addendum: 07/17/20 at 0005 by JORGE LUIS DODGE RN Amended: Links added.
[2020-07-16] MEDS: ATORVASTATIN 20 MG TABLET GT SCH (20:36)
[2020-07-16] MEDS: INSULIN GLARGINE,HUM 300 UNITS/3 ML CARTRIDGE SQ SCH (20:49)
[2020-07-16] MEDS: NOREPINEPHRINE BITARTRATE 32 MG in IV NORMAL SALINE 218 ML IV PRN (21:25)
[2020-07-16] MEDS: CEFEPIME HCL 0.5 G in IV DEXTROSE 5% 50 ML IV SCH (21:32)
[2020-07-16] MEDS: Z GUARD REMEDY PASTE 57 GM TUBE TOP PRN (21:32)
[2020-07-17] VITALS (76 sets, daily range): BP systolic 0–149; BP diastolic 0–75
--- NOTE | 2020-07-17 | NUR ---
Remains hypothermic; Geno toure still on. Tolerating GT feedings; no residuals.
[2020-07-17] MEDS: METRONIDAZOLE 500 MG/NS 100ML 500 MG in PREMIXED 1 EACH IV SCH ×3 (00:32→17:37)
[2020-07-17] MEDS: IV NORMAL SALINE 250 ML IV PRN ×2 (02:01→23:03)
--- NOTE | 2020-07-17 04:00 | NUR ---
During bath and wound care treatment BP dropped down to 60's systole. Levophed drip titrated. conveyor monitor remains Afib with rare to occasional PVCs. Monitored closely. Addendum: 07/17/20 at 0453 by JORGE LUIS DODGE RN Amended: Links added.
--- NOTE | 2020-07-17 04:30 | NUR ---
Temp=97.7 orally; Geno hugger turned off.
[2020-07-17 05:05] LABS: BASOPHILS # (AUTO) 0.1 K/uL (0.0-8.0); BASOPHILS % (AUTO) 0.3 % (0.0-2.0); EOSINOPHILS # (AUTO) 0.3 K/uL (0.0-0.7); EOSINOPHILS % (AUTO) 1.2 % (0.0-7.0); HEMATOCRIT 27.5 % (36.7-47.1); HEMOGLOBIN 8.4 g/dL (12.5-16.3); LYMPHOCYTES # (AUTO) 1.2 K/uL (20.0-40.0); LYMPHOCYTES % (AUTO) 5.6 % (20.5-51.5); MEAN CORPUSCULAR HEMOGLOBIN 29.6 uug (23.8-33.4); MEAN CORPUSCULAR HGB CONC 30 g/dL (32.5-36.3); MEAN CORPUSCULAR VOLUME 97.6 fL (73.0-96.2); MONOCYTES # (AUTO) 1.3 K/uL (2.0-10.0); MONOCYTES % (AUTO) 5.9 % (0.0-11.0); NEUTROPHILS # (AUTO) 19.2 K/uL (1.8-8.9); PLATELET COUNT (AUTO) 250 K/uL (152-348); RED BLOOD CELL COUNT(AUTO) 2.82 MIL/uL (4.06-5.63)
[2020-07-17 05:20] LABS: CARBON DIOXIDE 21 mmol/L (21-32); CHLORIDE 108 mmol/L (98-107); CREATININE 4.1 mg/dL (0.6-1.3); MAGNESIUM 1.9 mg/dL (1.8-2.4); PHOSPHOROUS 3.7 mg/dL (2.5-4.9); POTASSIUM 3.5 mmol/L (3.5-5.1); UREA NITROGEN, BLOOD 64 mg/dL (7-18)
[2020-07-17] MEDS: METOCLOPRAMIDE HCL 10 MG/10 ML UDC PEG SCH ×3 (05:22→21:36)
[2020-07-17] MEDS: MIDODRINE HCL 5 MG TABLET GT SCH ×3 (05:22→21:34)
[2020-07-17] MEDS: BLOOD SUGAR DIAGNOSTIC 1 EACH STRIP VI SCH ×3 (05:22→17:54)
[2020-07-17 05:27] LABS: GLUCOSE 332 mg/dL (74-106)
[2020-07-17] MEDS: INSULIN REGULAR, HUMAN 300 UNIT/3 ML VIAL SQ PRN ×2 (05:32→13:13)
--- NOTE | 2020-07-17 06:32 | NUR ---
BPs labile; now Levophed drip at 0.35 mcg/kg/min. environmental monitoring technician remains SR with rare to occasional PVCs. Neuro status unchanged; comatose, no gag or cough reflexes. O2 saturations 94-100% on FIO2 50%. Addendum: 07/17/20 at 0633 by JORGE LUIS DODGE RN Amended: Links added.
--- NOTE | 2020-07-17 06:47 | NUR ---
Has a run of V tach; BP =84/53. Levophed drip titrated. Will consider switching to Neosynephrine drip for BP support.
[2020-07-17] MEDS: NOREPINEPHRINE BITARTRATE 32 MG in IV NORMAL SALINE 218 ML IV PRN ×3 (07:44→21:36)
[2020-07-17] MEDS: VANCOMYCIN FOR PO/GT/NG USE PO SCH ×4 (07:53→20:47)
[2020-07-17] MEDS: ARGININE/GLUTAMINE/CALCIUM BMB 1 EACH POWD.PACK GT SCH (07:53)
[2020-07-17] MEDS: PANTOPRAZOLE SODIUM 40 MG VIAL IV SCH ×2 (07:56→20:46)
[2020-07-17] MEDS: CALCIUM ACETATE 667 MG CAPSULE GT SCH ×3 (07:56→17:37)
[2020-07-17] MEDS: FINASTERIDE 5 MG TABLET GT SCH (07:56)
[2020-07-17] MEDS: Z GUARD REMEDY PASTE 57 GM TUBE TOP SCH ×2 (07:57→20:48)
[2020-07-17] MEDS: CLOTRIMAZOLE 1% CREAM 30 GM TUBE TOP SCH ×2 (07:58→17:38)
[2020-07-17] MEDS: SODIUM HYPOCHLORITE 0.125% (QUARTER STRENGTH) 473 ML BOTTLE TP SCH ×2 (07:58→17:38)
[2020-07-17] MEDS ORDERED: POTASSIUM CHLORIDE 20 MEQ POWDER PACKET GT ONE (08:15)
--- NOTE | 2020-07-17 10:33 | NUR ---
Patient is declining during dialysis. Maxed out the pressors and dialysis nurse started albumin per doctors orders. Patient blood pressure stabilized.
[2020-07-17] MEDS ORDERED: ALBUMIN HUMAN 25% 100 ML ONE (10:37)
[2020-07-17] MEDS: PHENYLEPHRINE IV 100 MG in IV NORMAL SALINE 240 ML IV PRN (12:26)
[2020-07-17] MEDS: ATORVASTATIN 20 MG TABLET GT SCH (20:46)
[2020-07-17] MEDS: INSULIN GLARGINE,HUM 300 UNITS/3 ML CARTRIDGE SQ SCH (20:55)
--- NOTE | 2020-07-17 21:00 | NUR ---
HOB flat / unstable vital signs. Held tube feeding / above.
[2020-07-17] MEDS: CEFEPIME HCL 0.5 G in IV DEXTROSE 5% 50 ML IV SCH (21:44)
[2020-07-17] MEDS ORDERED: VASOPRESSIN 20 UNIT in IV NORMAL SALINE 40 ML IV PRN (21:45)
[2020-07-17] MEDS ORDERED: VASOPRESSIN 20 UNIT/ML VIAL ONE ×2 (21:55→21:59)
[2020-07-17] MEDS: VASOPRESSIN 40 UNIT in IV NORMAL SALINE 40 ML IV PRN (22:21)
[2020-07-17] MEDS ORDERED: IV NORMAL SALINE 500 ML IV ONE (23:15)
--- NOTE | 2020-07-17 23:15 | NUR ---
Reported to MATEUSZ Asher unable to obtain B/P, max'd 3 vasopressors. NSS 500 ml IVPB fluid bolus as ordered.
[2020-07-17] MEDS ORDERED: PHENYLEPHRINE 10 MG/1 ML VIAL ONE (23:48)
[2020-07-18] VITALS (40 sets, daily range): BP systolic 0–119; BP diastolic 0–48
[2020-07-18] MEDS: METRONIDAZOLE 500 MG/NS 100ML 500 MG in PREMIXED 1 EACH IV SCH ×2 (00:08→08:36)
[2020-07-18] MEDS: BLOOD SUGAR DIAGNOSTIC 1 EACH STRIP VI SCH ×3 (00:16→12:02)
[2020-07-18] MEDS: NOREPINEPHRINE BITARTRATE 32 MG in IV NORMAL SALINE 218 ML IV PRN ×3 (02:43→13:02)
[2020-07-18] MEDS: METOCLOPRAMIDE HCL 10 MG/10 ML UDC PEG SCH (05:37)
[2020-07-18] MEDS: MIDODRINE HCL 5 MG TABLET GT SCH ×2 (05:38→14:04)
[2020-07-18 06:35] LABS: ABG BASE EXCESS -11.4 mmol/L; ABG HCO3 17.9 mmol/L; ABG PCO2 60.1 mmHg (35.0-45.0); ABG PH 7.093 (7.350-7.450); ABG PO2 31.4 mmHg (75.0-100.0); ABG SITE RIGHT RADIAL; ABG TOTAL HEMOGLOBIN 8.3 G/dL (13.5-18.0); COHb 0.9 % (0.5-1.5); MetHb 1.3 % (0.0-1.5); O2Hb 41.1 % (94.0-97.0); VENT MODE VENT - A/C; VT, ABG 550 mL
[2020-07-18 06:39] LABS: BASOPHILS # (AUTO) 0.1 K/uL (0.0-8.0); BASOPHILS % (AUTO) 0.5 % (0.0-2.0); EOSINOPHILS # (AUTO) 0.3 K/uL (0.0-0.7); HEMATOCRIT 27.2 % (36.7-47.1); HEMOGLOBIN 7.9 g/dL (12.5-16.3); LYMPHOCYTES # (AUTO) 1.5 K/uL (20.0-40.0); LYMPHOCYTES % (AUTO) 6.2 % (20.5-51.5); MEAN CORPUSCULAR HEMOGLOBIN 29.8 uug (23.8-33.4); MEAN CORPUSCULAR HGB CONC 29 g/dL (32.5-36.3); MEAN CORPUSCULAR VOLUME 102.3 fL (73.0-96.2); MONOCYTES % (AUTO) 3.9 % (0.0-11.0); NEUTROPHILS # (AUTO) 21.5 K/uL (1.8-8.9); NEUTROPHILS % (AUTO) 88.4 % (38.5-71.5); PLATELET COUNT (AUTO) 148 K/uL (152-348); RED BLOOD CELL COUNT(AUTO) 2.66 MIL/uL (4.06-5.63); WHITE BLOOD COUNT (AUTO) 24.3 K/uL (3.6-10.2)
--- NOTE | 2020-07-18 07:00 | NUR ---
Received report from warehouse shift supervisor nurse, patient in bed on air mattress obtunded, Atrial flutter on the monitor. On vasopressors vasopressin, levophed, neosynephrine maxed out, and no measurable blood pressure for several hours reported to this financial writer. Noted to have large amounts of stomach content leaking from gtube site, rectal tube in place, foul odor from wounds noted throughout patients surroundings. Patient is anuric. 100% oxygen saturation on the monitor.
[2020-07-18 07:08] LABS: CARBON DIOXIDE 17 mmol/L (21-32); CHLORIDE 112 mmol/L (98-107); CREATININE 3.2 mg/dL (0.6-1.3); GLUCOSE 94 mg/dL (74-106); MAGNESIUM 1.8 mg/dL (1.8-2.4); PHOSPHOROUS 4.3 mg/dL (2.5-4.9); POTASSIUM 4.4 mmol/L (3.5-5.1); UREA NITROGEN, BLOOD 50 mg/dL (7-18)
--- NOTE | 2020-07-18 07:15 | NUR ---
Contacted Dr. Calderon to inform him that patients BP is not readable all night, order received for 500cc NS bolus.
[2020-07-18] MEDS: PHENYLEPHRINE IV 100 MG in IV NORMAL SALINE 240 ML IV PRN ×2 (07:30→13:02)
[2020-07-18] MEDS: VASOPRESSIN 40 UNIT in IV NORMAL SALINE 40 ML IV PRN (08:04)
--- NOTE | 2020-07-18 08:09 | NUR ---
Patients ABG's reported to Dr. Dailey, no new orders received.
[2020-07-18] MEDS ORDERED: IV NORMAL SALINE 500 ML IV ONE (08:15)
--- NOTE | 2020-07-18 08:15 | NUR ---
Patient given bolus of NS wide open, noted to have measurable NIBP on monitor. patient cleansed and wound care on periphery performed and gtube site dressing changed and secured with sponges for drainage.
[2020-07-18] MEDS: ARGININE/GLUTAMINE/CALCIUM BMB 1 EACH POWD.PACK GT SCH (08:33)
[2020-07-18] MEDS: CALCIUM ACETATE 667 MG CAPSULE GT SCH ×2 (08:33→12:00)
[2020-07-18] MEDS: FINASTERIDE 5 MG TABLET GT SCH (08:33)
[2020-07-18] MEDS: PANTOPRAZOLE SODIUM 40 MG VIAL IV SCH (08:34)
[2020-07-18] MEDS: Z GUARD REMEDY PASTE 57 GM TUBE TOP SCH (08:34)
[2020-07-18] MEDS: CLOTRIMAZOLE 1% CREAM 30 GM TUBE TOP SCH (08:34)
[2020-07-18] MEDS: SODIUM HYPOCHLORITE 0.125% (QUARTER STRENGTH) 473 ML BOTTLE TP SCH (08:34)
[2020-07-18] MEDS: VANCOMYCIN FOR PO/GT/NG USE PO SCH ×2 (08:35→13:02)
[2020-07-18] MEDS: NEPRO 1000 ML GT PRN (11:53)
--- NOTE | 2020-07-18 11:53 | NUR ---
Notified Dr. Calderon that patients abdomen continues to leak content from gtube site. No new orders received.
[2020-07-18] MEDS ORDERED: LINEZOLID IV 600 MG in PREMIXED 1 EACH IV SCH (14:00)
--- NOTE | 2020-07-18 14:27 | NUR ---
Notified Dr. Crawford that EKG result states that patient is afib with slow ventricular response, orders received for atropine IV push and dopamine drip.
[2020-07-18] MEDS ORDERED: ATROPINE SULFATE 1 MG/10 ML DISP.SYRIN IV ONE ×2 (14:45→18:10)
[2020-07-18] MEDS ORDERED: DOPamine IV DRIP 400 MG/250ML 250 ML IV PRN (14:45)
--- NOTE | 2020-07-18 14:48 | NUR ---
Patient was asystole on the monitor and had no palpable pulse, CODE BLUE called and Compressions started immediately, defibrilator pads attached, 1451pm atropine given, 1453pm Epi given, 1455pm sodium bicarb given, 1456pm Epi given, 1459pm Epi given. Code terminated by Dr. Salima Lay at 1501pm. Patient remained asystolic on monitor, no palpable pulse, no heart tones. Apneic for 5 minutes, no chest rise, oxygen saturation 0% on the monitor, no BP pressure readings multiple attempts. No pupillary response, pupils fixed and dilated.
[2020-07-18] MEDS ORDERED: MEROPENEM 1 G in IV NORMAL SALINE 100 ML IV SCH (15:00)
--- NOTE | 2020-07-18 15:15 | NUR ---
Family notified of patients , and allowed to come visit the facility. No Mortuary information given at this time.
[2020-07-18 16:40] LABS: BAND % (MANUAL) 9 % (0-10); EOSINOPHILS % (MANUAL) 2 % (0-8); LYMPHOCYTES % (MANUAL) 12 % (20-40); MONOCYTES % (MANUAL) 2 % (2-10); NEUTROPHILS % (MANUAL) 75 % (42-75)
--- NOTE | 2020-07-18 17:45 | NUR ---
Family visited decedent, and stated that they still do not have a mortuary Son Diallo would like some resources from elementary school social worker if available.
[2020-07-18] MEDS ORDERED: SODIUM BICARBONATE 8.4% 50 MEQ/50 ML DISP.SYRIN IV ONE (18:10)
[2020-07-18] MEDS ORDERED: CEFAZOLIN 1 G VIAL MC ONE (18:10)
[2020-07-18] MEDS ORDERED: ETOMIDATE 20 MG/10 ML VIAL MC ONE (18:10)
[2020-07-18] MEDS ORDERED: EPINEPHRINE 1:10,000 1 MG/10 ML DISP.SYRIN MC ONE (18:10)
== END 2020-07-18 18:11 | disposition expired | DRG 393 ==
LOC: ER 18:51 → TRANSITION 21:28 → TELE-TD 07-07 00:05 → TELE-TD3 07-07 06:34 → CCU 07-09 21:17
PROVIDERS: ADMIT Family Medicine; ATTEND Internal Medicine
PROC: 5A1955Z Respiratory Ventilation, Greater than 96 Consecutive Hours (ICD-10-PCS; principal; 2020-06-29)
PROC: 5A1D70Z Performance of Urinary Filtration, Intermittent, Less than 6 Hours Per Day (ICD-10-PCS; 2020-07-01)
PROC: 30233N1 Transfusion of Nonautologous Red Blood Cells into Peripheral Vein, Percutaneous Approach (ICD-10-PCS; 2020-07-06)
PROC: 05H533Z Insertion of Infusion Device into Right Subclavian Vein, Percutaneous Approach (ICD-10-PCS; 2020-07-07)
PROC: B546ZZA Ultrasonography of Right Subclavian Vein, Guidance (ICD-10-PCS; 2020-07-07)
PROC: 02HV33Z Insertion of Infusion Device into Superior Vena Cava, Percutaneous Approach (ICD-10-PCS; 2020-07-10)
PROC: B548ZZA Ultrasonography of Superior Vena Cava, Guidance (ICD-10-PCS; 2020-07-10)
PROC: 0DH63UZ Insertion of Feeding Device into Stomach, Percutaneous Approach (ICD-10-PCS; 2020-07-13)
PROC: 5A12012 Performance of Cardiac Output, Single, Manual (ICD-10-PCS; 2020-07-18)
DX: K94.22 Gastrostomy infection (principal); A41.9 Sepsis, unspecified organism; L89.324 Pressure ulcer of left buttock, stage 4; L89.314 Pressure ulcer of right buttock, stage 4; L89.154 Pressure ulcer of sacral region, stage 4; N18.6 End stage renal disease; E43 Unspecified severe protein-calorie malnutrition; R65.21 Severe sepsis with septic shock; J15.6 Pneumonia due to other Gram-negative bacteria; J96.21 Acute and chronic respiratory failure with hypoxia; J15.9 Unspecified bacterial pneumonia; J69.0 Pneumonitis due to inhalation of food and vomit; I13.11 Hypertensive heart and chronic kidney disease without heart failure, with stage 5 chronic kidney disease, or end stage renal disease; E87.2 Acidosis; Z99.11 Dependence on respirator [ventilator] status; G93.40 Encephalopathy, unspecified; I82.612 Acute embolism and thrombosis of superficial veins of left upper extremity; K92.2 Gastrointestinal hemorrhage, unspecified; G93.1 Anoxic brain damage, not elsewhere classified; E87.0 Hyperosmolality and hypernatremia; L97.919 Non-pressure chronic ulcer of unspecified part of right lower leg with unspecified severity; L97.929 Non-pressure chronic ulcer of unspecified part of left lower leg with unspecified severity; E11.22 Type 2 diabetes mellitus with diabetic chronic kidney disease; Z99.2 Dependence on renal dialysis; D63.8 Anemia in other chronic diseases classified elsewhere; B96.4 Proteus (mirabilis) (morganii) as the cause of diseases classified elsewhere; I48.0 Paroxysmal atrial fibrillation; K21.9 Gastro-esophageal reflux disease without esophagitis; K29.70 Gastritis, unspecified, without bleeding; E78.5 Hyperlipidemia, unspecified; E11.65 Type 2 diabetes mellitus with hyperglycemia; D50.9 Iron deficiency anemia, unspecified; Z20.822 Contact with and (suspected) exposure to COVID-19; Z83.3 Family history of diabetes mellitus; Z93.0 Tracheostomy status; Z88.0 Allergy status to penicillin; R13.10 Dysphagia, unspecified; E88.09 Other disorders of plasma-protein metabolism, not elsewhere classified; E87.6 Hypokalemia; R74.8 Abnormal levels of other serum enzymes; L98.8 Other specified disorders of the skin and subcutaneous tissue; S51.812A Laceration without foreign body of left forearm, initial encounter; X58.XXXA Exposure to other specified factors, initial encounter; Y93.9 Activity, unspecified; Y92.89 Other specified places as the place of occurrence of the external cause; E11.51 Type 2 diabetes mellitus with diabetic peripheral angiopathy without gangrene; E11.42 Type 2 diabetes mellitus with diabetic polyneuropathy; E66.9 Obesity, unspecified; Z68.34 Body mass index [BMI] 34.0-34.9, adult; L89.616 Pressure-induced deep tissue damage of right heel; S80.11XA Contusion of right lower leg, initial encounter; M62.50 Muscle wasting and atrophy, not elsewhere classified, unspecified site; Z74.01 Bed confinement status; H70.12 Chronic mastoiditis, left ear; K31.84 Gastroparesis; E11.43 Type 2 diabetes mellitus with diabetic autonomic (poly)neuropathy; E11.622 Type 2 diabetes mellitus with other skin ulcer
CPT/HCPCS: 36415; 36569; 36600; 70030-TC; 70450; 71045; 71275; 72220; 73590; 74018; 83605; 83615; 83690; 83735; 84100; 85025; 85651; 85730; 86140; 86706; 86850; 86900; 86901; 86920; 87040; 87070; 87077; 87340; 90937; 92950; 93005; 94002; 94003; A4217; A4663; C1758; C9113; G0378; J0171; J0278; J0461; J0690; J0692; J0885; J1265; J1815; J2020; J2185; J2370; J2543; J3370; J3475; J3480; J3490; J7030; J7040; J7050; J7060; J7120; J8597; P9016-BL; P9021; P9047; Q9963; Q9967; U0003